=== PATIENT | male | born 1950 | race Two or more races ===

== ENCOUNTER 2025-05-20 23:46 | Inpatient (IN) | payer MEDICARE, MEDICAID ==
[~2025-05-20] VITALS: Ht 175.3 cm; Wt 78.1 kg
[2025-05-21] VITALS (17 sets, daily range): BP systolic 139–149; BP diastolic 60–65; PULSE 70–107; RESP 16–30; TEMP 97.3–97.7; O2SAT 94–100
--- NOTE | 2025-05-21 00:24 | ED.PDOC ---
SOB-HPI HPI Comments 74-year-old male who came to ER via EMS for shortness a breath. Patient has history of hypertension, diabetes, end-stage renal disease, on dialysis every Friday and Friday. Unable to attend his dialysis session yesterday (). 2 hours prior to arrival, patient started developing shortness of breath, associated with left-sided chest pains and diaphoresis. Patient was given albuterol treatment while EN route to the emergency room. Patient was saturating 98% at 15 L/min Chief Complaint: Shortness of Breath Time Seen by MD: 00:22 Reviewed notes: Nurses Notes Information Source: Patient, Emergency Med Personnel Mode of Arrival: EMS Severity: Moderate Timing: Hours Duration: Since onset Context: At Rest, With Light Exertion History of: Other (End-stage renal disease) Prehospital treatment: Breathing Tx Associated Signs and Symptoms: Wheeze, Cough, Chest Pain Review of Systems REVIEW OF SYSTEMS: No fever, no chills, or fatigue HEENT: No sore throat, no earache, no congestion, no neck pain. Cardiac: (+) chest pain. No palpitations. Lungs: (+) shortness of breath, no cough. GI: No nausea, no vomiting, no diarrhea, no constipation, no abdominal pain : No dysuria, frequency, or urgency. No hematuria. Musculoskeletal: No joint pain , no joint swelling, no extremity edema. Skin: No rash, no itching. Neuro: No headache, no dizziness, no weakness Vital Signs Vital Signs Date Time Temp Pulse Resp B/P (MAP) Pulse Ox O2 Delivery O2 Flow Rate FiO2 05/21/25 03:01 81 100 Facial BiPAP Mask 30 05/21/25 02:19 17 146/72 (96) 05/21/25 01:17 97.6 97.6 Physical Exam General: Awake, alert and oriented. Patient is diaphoretic Skin: Skin in moist, warm and intact. Appropriate color for ethnicity. Nailbeds pink with no cyanosis. HEENT: The head is normocephalic and atraumatic. Conjunctivae are clear without exudates or hemorrhage. Sclera is non-icteric. EOM are intact. No signs of nystagmus. Eyelids are normal in appearance without swelling or lesions. Oral mucosa is pink and moist Neck: The neck is supple with normal range of motion. No JVD. Cardiac: Heart rate and rhythm are normal. No murmurs, gallops, or rubs are auscultated. Respiratory: Positive respiratory distress, rales throughout, expiratory wheezes Abdominal: Abdomen is soft, non-tender without distention. Bowel sounds are present and normoactive in all four quadrants. Extremities: Bilateral lower extremity pitting edema Neurological: The patient is awake, alert and oriented to person, place, and time with normal speech. Speech is clear. There is no facial asymmetry. Past Medical History PAST MEDICAL HISTORY: DM, ESRD, HTN Surgical History (Other): Dialysis Friday Family History Family History: Reviewed,noncontributory to illness Social History Smoker: Non-Smoker Alcohol: Denies ETOH Use Drugs: Denies Drug Use Lives In: Home EKG EKG : Pulse Rate (adult): 109 Hypertrophy: LAE Comments Ectopic atrial tachycardia, prolonged MD interval Was a procedure done? Was a procedure done?: No Differential Dx Differential Diagnosis: Bronchitis, CHF, COPD, Hyperventilation, Myocardial infarction, Pneumonia, Respiratory Distress, Other X-Ray, Labs, Meds, VS Vital Signs Date Time Temp Pulse Resp B/P (MAP) Pulse Ox O2 Delivery O2 Flow Rate FiO2 05/21/25 03:01 81 100 Facial BiPAP Mask 30 05/21/25 02:19 83 17 146/72 (96) 100 05/21/25 02:04 156/75 05/21/25 01:43 85 100 Facial BiPAP Mask 40 05/21/25 01:43 86 05/21/25 01:17 97.6 86 19 152/74 (100) 100 97.6 05/21/25 01:15 19 100 Bi-Pap+ 40 40 05/21/25 01:00 147/77 05/21/25 00:54 107 30 99 50 05/21/25 00:34 107 99 Facial BiPAP Mask 50 05/21/25 00:24 109 05/21/25 00:00 107 05/20/25 23:56 109 05/20/25 23:46 98.3 107 26 185/94 (124) 92 98.3 Lab Test 05/21/25 03:18 05/21/25 01:41 05/21/25 01:21 05/21/25 01:20 Range/Units Troponin I High Sensitivity 120 *H 92 *H </=54 ng/L POC Glucose 186 H 70-106 mg/dl Influenza Type A Antigen Negative Negative Influenza Type B Antigen Negative Negative SARS-CoV-2 Antigen (Rapid) Negative NEGATIVE Test 05/21/25 01:16 05/21/25 00:15 Range/Units Blood Gas Specimen Type Arterial Blood Gas Sample Site Right radial Blood Gas Patient Temperature 37.0 Arterial Blood Date Drawn [id number] Arterial Blood pH 7.358 7.350-7.450 Arterial Blood Partial Pressure CO2 38.0 35.0-48.0 mmHg Arterial Blood Partial Pressure O2 116.1 H 83.0-108.0 mmHg Arterial Blood HCO3 20.9 L 21.0-28.0 mmol/L Arterial Blood Oxygen Saturation 97.2 94.0-98.0 % Arterial Blood Base Excess -4.1 L -2.0-3.0 mmol/L Arterial Blood Oxyhemoglobin 96.0 94.0-98.0 % Arterial Blood Carboxyhemoglobin 1.1 0.5-1.5 % Arterial Blood Methemoglobin 0.1 0.0-1.5 % Harshad Test Yes Blood Gas Total Hemoglobin 10.50 L 13.5-17.5 g/dL Blood Gas Set Respiration Rate 12.0 Blood Gas Modality Mask - bipap FiO2 % 50.0 Blood Gas EPAP 5 Blood Gas IPAP 12 White Blood Count 7.5 4.4-10.8 10^3/uL Red Blood Count 3.54 L 4.5-5.90 10^6/uL Hemoglobin 11.1 L 13.5-17.5 g/dL Hematocrit 34.1 L 41.0-53.0 % Mean Corpuscular Volume 96.5 80.0-100.0 fL Mean Corpuscular Hemoglobin 31.4 28.0-32.0 pg Mean Corpuscular Hemoglobin Concent 32.6 32.0-36.0 g/dL Red Cell Distribution Width 14.8 H 11.8-14.3 % Platelet Count 186 140-450 10^3/uL Mean Platelet Volume 7.9 6.9-10.8 fL Neutrophils (%) (Auto) 48.4 37.0-80.0 % Lymphocytes (%) (Auto) 37.2 10.0-50.0 % Monocytes (%) (Auto) 10.1 0.0-12.0 % Eosinophils (%) (Auto) 3.1 0.0-7.0 % Basophils (%) (Auto) 1.2 0.0-2.0 % Neutrophils # (Auto) 3.6 1.6-8.6 10 ^3/uL Lymphocytes # (Auto) 2.8 0.4-5.4 10 ^3/uL Monocytes # (Auto) 0.8 0-1.3 10 ^3/uL Eosinophils # (Auto) 0.2 0-0.8 10 ^3/uL Basophils # (Auto) 0.1 0-0.2 10 ^3/uL Nucleated Red Blood Cells 0.0 % Prothrombin Time 10.9 9.3-11.8 sec Prothrombin Time INR 1.03 0.9-1.15 Sodium Level 144 136-145 mmol/L Potassium Level 5.9 *H 3.5-5.1 mmol/L Chloride Level 103 98-107 mmol/L Carbon Dioxide Level 24 20-31 mmol/L Anion Gap 17 H 5-15 Blood Urea Nitrogen 92 *H 9-23 mg/dL Creatinine 11.53 *H 0.700-1.30 mg/dL Glomerular Filtration Rate Calc 4 >90 mL/min BUN/Creatinine Ratio 8.0 L 10.0-20.0 Serum Glucose 201 H 74-106 mg/dL Hemoglobin A1c 6.0 H <5.7 % A1C Lactic Acid Level 1.3 0.4-2.0 mmol/L Calcium Level 7.7 L 8.7-10.4 mg/dL Phosphorus Level 5.0 2.4-5.1 mg/dL Magnesium Level 2.7 H 1.6-2.6 mg/dL Total Bilirubin 0.2 0.2-1.0 mg/dL Aspartate Amino Transferase (AST) 32 <34 U/L Alanine Aminotransferase (ALT) 24 7-40 U/L Alkaline Phosphatase 103 46-116 U/L Troponin I High Sensitivity 86 *H </=54 ng/L B-Type Natriuretic Peptide 1469.48 0-100 pg/mL Total Protein 8.2 5.7-8.2 g/dL Albumin 4.8 3.2-4.8 g/dL Lipase 96 H 12-53 U/L Thyroid Stimulating Hormone (TSH) 4.06 0.55-4.78 uIU/mL Plasma/Serum Blood Alcohol 4.8 <10 mg/dL Current Medications Medications (Trade) Dose Ordered Sig/Rakan Route Start Time Stop Time Status Last Admin Nitroglycerin (Nitro-Bid) 1 pkg ONCE ONCE TD 05/21/25 00:00 05/21/25 00:01 DC 05/21/25 01:00 Insulin Human Regular (InsuLIN R) 10 units ONCE ONCE IV 05/21/25 01:45 05/21/25 01:46 DC 05/21/25 01:45 Dextrose 50 ml ONCE ONCE IV 05/21/25 01:45 05/21/25 01:46 DC 05/21/25 01:45 Albuterol (Ventolin Medneb) 20 mg ONCE ONCE NEB 05/21/25 01:45 05/21/25 01:46 DC 05/21/25 03:01 Sodium Bicarbonate 50 ml ONCE ONCE IV 05/21/25 01:45 05/21/25 01:46 DC 05/21/25 01:45 CHEST RADIOGRAPH Indication: AMS Technique: Single frontal view of the chest was obtained COMPARISON: None FINDINGS: Lines and Tubes: None Lungs: Diffuse extensive bilateral pulmonary infiltrate with mild consolidative features throughout the right lung and left lung base. No definite pleural effusion. No pneumothorax. Cardiomediastinal contours: Unremarkable. Atherosclerotic vascular calcifications. Bones: Unremarkable IMPRESSION: 1. Diffuse extensive bilateral pulmonary infiltrate with mild right hemithoracic and left lung base consolidative features. Time of 1ST Reevaluation: 00:07 Reevaluation 1ST: Unchanged Patient Education/Counseling: Prognosis Family Education/Counseling: No Family Present SEPSIS Sepsis Screen Physician Orders Drug Screen (05/21/25 00:00) Urinalysis (05/21/25 00:00) Chest Xray 1 View (05/21/25 00:00) Blood Culture (05/21/25 00:00) Saline Lock (05/21/25 00:00) Fisher Trap (05/21/25 ) Electrocardigram (05/21/25 03:00) BIPAP (05/21/25 00:20) Abg W/ Co-Ox (05/21/25 01:00) Vital Signs Date Time Temp Pulse Resp B/P (MAP) Pulse Ox O2 Delivery O2 Flow Rate FiO2 05/21/25 03:01 81 100 Facial BiPAP Mask 30 05/21/25 02:19 83 17 146/72 (96) 100 05/21/25 02:04 156/75 05/21/25 01:43 85 100 Facial BiPAP Mask 40 05/21/25 01:43 86 05/21/25 01:17 97.6 86 19 152/74 (100) 100 97.6 05/21/25 01:15 19 100 Bi-Pap+ 40 40 05/21/25 01:00 147/77 05/21/25 00:54 107 30 99 50 05/21/25 00:34 107 99 Facial BiPAP Mask 50 05/21/25 00:24 109 05/21/25 00:00 107 05/20/25 23:56 109 05/20/25 23:46 98.3 107 26 185/94 (124) 92 98.3 Laboratory Tests Test 05/21/25 00:15 Lactic Acid Level 1.3 mmol/L (0.4-2.0) White Blood Count 7.5 10^3/uL (4.4-10.8) Departure 1 Departure Time of Disposition: 02:16 Impression: Primary Impression: Acute pulmonary edema Additional Impressions: Hypoxic respiratory failure Missed dialysis End stage renal disease on dialysis Disposition: ADMITTED INPATIENT Condition: Guarded Comments 74-year-old male with history of end-stage renal disease, missed dialysis arrived to the emergency department with shortness of breath with primary 15 L. Patient was placed on BiPAP on arrival to the ED. Chest x-ray showed pulmonary edema. Attempt to consult Nephrology for urgent dialysis. Patient was was given nitro paste, treated for hyperkalemia. Patient is stabilized in the ED. Patient admitted to hospitalist service for further treatment, evaluation and monitoring. Extensive evaluation was performed in attempt to identify or rule out: (See differential diagnosis section) The following tests were ordered, and results were reviewed by me and discussed with patient: (See diagnostic results section) The following test were independently interpreted by me: EKG I reviewed and agreed with the following test results read by other providers: Chest x-ray I reviewed the following notes from the pt's past medical encounters: N/A Additional information was gathered from interviewing the following independent historians: N/A Discussion of management or test interpretation with external physician/other qualified health career transition specialist: N/A Addressed one or more chronic illnesses with severe exacerbation, progression, or side effects of treatment: His renal disease on dialysis, an acute or chronic illness that poses a threat to life or bodily function: Hypoxic respiratory failure, hyperkalemia Decision regarding hospitalization or escalation of hospital level of care: Risk and benefits of admission for further treatment of patient's condition was considered. Due to patient's current clinical condition, high risk of decline and poor outcome if discharged and need for further inpatient management and monitoring, patient will be admitted to the hospital. Discussed with patient. Drug therapy requiring intensive monitoring for toxicity: IV sodium bicarb, IV dextrose, IV insulin Parenteral controlled substances: N/A Decision regarding elective major surgery with identified patient or procedure risk factors: N/A Decision regarding emergency major surgery: N/A Decision not to resuscitate or to de-escalate care because of poor prognosis: N/A Diagnosis or treatment significantly limited by social determinants of health: N/A Critical Care Note Critical Care Time?: Yes (35 min-critical care time only) Critical care comment: . Due to a high probability of clinically significant, life threatening deterioration, the patient required my highest level of preparedness to intervene emergently and I personally spent this critical care time directly and personally managing the patient. This critical care time included obtaining a history; examining the patient; pulse oximetry; ordering and review of studies; arranging urgent treatment with development of a management plan; evaluation of patient's response to treatment; frequent reassessment; and, discussions with other providers. This critical care time was performed to assess and manage the high probability of imminent, life-threatening deterioration that could result in multi-organ failure. It was exclusive of separately billable procedures and treating other patients and teaching time. Please see my other sections and the rest of the note for further information on patient assessment and treatment. Stability Stability form required: No Heart Score Heart Score: Heart Score Response (Comments) Value History Moderate Suspicious 1 EKG Repolarization Disturb 1 Age >65 2 Risk Factors >3 or Hx ASHD 2 Troponin Normal limit 0 Total 6 I personally scribed for ENRIQUE STEEN MD ([email or web address]) on 05/21/25 at 00:24. Electronically submitted by Baldomero Moeller ([email or web address]). I personally scribed for ENRIQUE STEEN MD ([email or web address]) on 05/21/25 at 01:01. Electronically submitted by Baldomero Moeller ([facility] ENRIQUE STEEN MD May 21, 2025 00:24
[2025-05-21 00:34] LABS: Basophils # (auto) 0.1 10 ^3/uL (0-0.2); Basophils % (auto) 1.2 % (0.0-2.0); Eosinophils # (auto) 0.2 10 ^3/uL (0-0.8); Eosinophils % (auto) 3.1 % (0.0-7.0); Hematocrit 34.1 % (41.0-53.0); Hemoglobin 11.1 g/dL (13.5-17.5); Lymphocytes # (auto) 2.8 10 ^3/uL (0.4-5.4); Lymphocytes % (auto) 37.2 % (10.0-50.0); Mean Corpuscular Hemoglobin 31.4 pg (28.0-32.0); Mean Corpuscular Hgb Conc. 32.6 g/dL (32.0-36.0); Mean Corpuscular Volume 96.5 fL (80.0-100.0); Monocytes # (auto) 0.8 10 ^3/uL (0-1.3); Monocytes % (auto) 10.1 % (0.0-12.0); Neutrophils # (auto) 3.6 10 ^3/uL (1.6-8.6); Neutrophils % (auto) 48.4 % (37.0-80.0); Platelet Count (auto) 186 10^3/uL (140-450); Red Blood Cells 3.54 10^6/uL (4.5-5.90); Red Cell Distribution Width 14.8 % (11.8-14.3); White Blood Cell 7.5 10^3/uL (4.4-10.8)
[2025-05-21] MEDS ORDERED: NITROGLYCERIN 50MG/250ML 250 ML IV ONE (00:45)
[2025-05-21 00:47] LABS: INR 1.03 (0.9-1.15); Prothrombin Time 10.9 sec (9.3-11.8)
[2025-05-21 00:51] LABS: Alanine Aminotransferase 24 U/L (7-40); Albumin 4.8 g/dL (3.2-4.8); Alkaline Phosphatase 103 U/L (46-116); Anion Gap 17 (5-15); Aspartate Aminotransferase 32 U/L (<34); Carbon Dioxide 24 mmol/L (20-31); Chloride 103 mmol/L (98-107); Sodium 144 mmol/L (136-145); Total Protein 8.2 g/dL (5.7-8.2)
[2025-05-21 00:54] LABS: Bilirubin, Total 0.2 mg/dL (0.2-1.0); Calcium 7.7 mg/dL (8.7-10.4); Glucose 201 mg/dL (74-106); Lipase 96 U/L (12-53); Magnesium 2.7 mg/dL (1.6-2.6)
[2025-05-21 00:55] LABS: Blood Urea Nitrogen 92 mg/dL (9-23); Potassium 5.9 mmol/L (3.5-5.1)
--- NOTE | 2025-05-21 00:56 | DVH ---
CHEST RADIOGRAPH Indication: AMS Technique: Single frontal view of the chest was obtained COMPARISON: None FINDINGS: Lines and Tubes: None Lungs: Diffuse extensive bilateral pulmonary infiltrate with mild consolidative features throughout t he right lung and left lung base. No definite pleural effusion. No pneumothorax. Cardiomediastinal contours: Unremarkable. Atherosclerotic vascular calcifications. Bones: Unremarkable IMPRESSION: 1. Diffuse extensive bilateral pulmonary infiltrate with mild right hemithoracic and left lung base c onsolidative features.
[2025-05-21] MEDS: NITROGLYCERIN 2% OINT 1GM PKG TD ONE (01:00)
[2025-05-21 01:13] LABS: Blood Alcohol 4.8 mg/dL (<10)
[2025-05-21 01:24] LABS: Base Excess -4.1 mmol/L (-2.0-3.0)
[2025-05-21] MEDS: DEXTROSE (50%) 50ML SYRG IV ONE ×2 (01:45→09:15)
[2025-05-21] MEDS: InsuLIN REG 1unit/0.01ml Soln (100units/ml) IV ONE ×2 (01:45→09:15)
[2025-05-21] MEDS: SODIUM BICARB 8.4% 50Meq/50ml SYR INJ IV ONE ×2 (01:45→09:15)
[2025-05-21 01:54] LABS: Rapid Influenza A Negative (Negative); Rapid Influenza B Negative (Negative)
[2025-05-21 01:55] LABS: COVID19 ANTIGEN SOFIA FIA NEGATIVE (NEGATIVE)
[2025-05-21] MEDS: ALBUTEROL SULF 2.5 MG/0.5ML(0.5%) NEB SOLN NEB ONE ×2 (03:01→07:39)
[2025-05-21] MEDS ORDERED: NITROGLYCERIN 0.4 MG SL TAB SL PRN (03:45)
[2025-05-21] MEDS ORDERED: DEXTROSE (50%) 50ML SYRG IV PRN (06:00)
--- NOTE | 2025-05-21 06:05 | DVHHPRES ---
History of Present Illness Resident Creating Document: AL BRUCE RESIDENT History of Present Illness Patient is a 73-year-old male with a past medical history of end-stage renal disease on dialysis Friday at [facility] dialysis, hypertension, type 2 diabetes mellitus, coronary artery disease, congestive heart failure, glaucoma presented to the ED with a chief complaint of shortness of breath. Patient reported that he started to have shortness of breath today which worsened following which she had to come to the hospital for further evaluation. Also reported left-sided chest pain which was pressure-like associated with bilateral hand numbness. Patient denied any palpitations, dizziness, headache. Patient reported he attended his last dialysis session on that he does not any urine output. Past medical history as per HPI Past surgical history: Left forearm AV fistula Social history: Patient lives with family and denies smoking, alcohol, drug use Home medications: Carvedilol 12.5 b.i.d., gabapentin 100 t.i.d., losartan 50 daily, atorvastatin 40 daily, aspirin Review of Systems Review of Systems Patient seen and examined at the bedside Was on BiPAP with a IPAP 12 and EPAP 5 and pulling more than 500 mL of tidal volume, no respiratory distress noted Was able to answer in full sentences Complained of mild chest pain 3/10 on intensity, nonradiating, pressure-like No other acute complaints Allergies: Coded Allergies: NO KNOWN ALLERGIES (Unverified , 05/21/25) Medications Current Medications Medications Dose Ordered Sig/Rakan Route Start Time Stop Time Status Last Admin Dose Admin Nitroglycerin 0.4 mg Q5MINP PRN SL 05/21/25 03:45 Morphine Sulfate 2 mg Q30M PRN IV 05/21/25 03:45 Albuterol 2.5 mg Q8HR NEB 05/21/25 06:00 Ipratropium Colt 0.5 mg Q8HR NEB 05/21/25 06:00 Carvedilol 12.5 mg Q12HR PO 05/21/25 10:00 Nifedipine 30 mg DAILY PO 05/21/25 10:00 Exam Vital Signs Vital Signs Date Time Temp Pulse Resp B/P (MAP) Pulse Ox O2 Delivery O2 Flow Rate FiO2 05/21/25 04:19 83 05/21/25 04:00 21 131/66 (87) 93 05/21/25 03:01 Facial BiPAP Mask 30 05/21/25 01:17 97.6 97.6 Exam Gen - no pallor, no icterus, no cyanosis, no clubbing, no LAD, 1+ edema in the bilateral ankles. Skin - Patients skin is warm and dry. HEENT - normocephalic, atraumatic, dry mucous membranes. Neck - full ROM, no LAD, JVD elevated Pulmonary - B/L equal breath sounds with inspiratory crackles more on the right as compared to the left, no wheezing, no stridor. cardiovascular - regular S1,S2 heard, no added sounds, no murmurs heard. GI - soft, nontender abdomen. no hepatospleenomegaly. Bowel sounds normoactive Neurological - Patient is A/O X 3 . Bilateral upper extremity strength 5/5, bilateral lower extremity strength 5/5, no facial droop, normal speech, no tremor, no sensory deficiets. Labs/Xrays Labs Test 05/21/25 03:18 05/21/25 01:41 05/21/25 01:21 05/21/25 01:16 Range/Units Troponin I High Sensitivity 120 *H </=54 ng/L POC Glucose 186 H 70-106 mg/dl Influenza Type A Antigen Negative Negative Influenza Type B Antigen Negative Negative SARS-CoV-2 Antigen (Rapid) Negative NEGATIVE Blood Gas Specimen Type Arterial Blood Gas Sample Site Right radial Blood Gas Patient Temperature 37.0 Arterial Blood Date Drawn [id number] Arterial Blood pH 7.358 7.350-7.450 Arterial Blood Partial Pressure CO2 38.0 35.0-48.0 mmHg Arterial Blood Partial Pressure O2 116.1 H 83.0-108.0 mmHg Arterial Blood HCO3 20.9 L 21.0-28.0 mmol/L Arterial Blood Oxygen Saturation 97.2 94.0-98.0 % Arterial Blood Base Excess -4.1 L -2.0-3.0 mmol/L Arterial Blood Oxyhemoglobin 96.0 94.0-98.0 % Arterial Blood Carboxyhemoglobin 1.1 0.5-1.5 % Arterial Blood Methemoglobin 0.1 0.0-1.5 % Harshad Test Yes Blood Gas Total Hemoglobin 10.50 L 13.5-17.5 g/dL Blood Gas Set Respiration Rate 12.0 Blood Gas Modality Mask - bipap FiO2 % 50.0 Blood Gas EPAP 5 Blood Gas IPAP 12 Test 05/21/25 00:15 Range/Units White Blood Count 7.5 4.4-10.8 10^3/uL Red Blood Count 3.54 L 4.5-5.90 10^6/uL Hemoglobin 11.1 L 13.5-17.5 g/dL Hematocrit 34.1 L 41.0-53.0 % Mean Corpuscular Volume 96.5 80.0-100.0 fL Mean Corpuscular Hemoglobin 31.4 28.0-32.0 pg Mean Corpuscular Hemoglobin Concent 32.6 32.0-36.0 g/dL Red Cell Distribution Width 14.8 H 11.8-14.3 % Platelet Count 186 140-450 10^3/uL Mean Platelet Volume 7.9 6.9-10.8 fL Neutrophils (%) (Auto) 48.4 37.0-80.0 % Lymphocytes (%) (Auto) 37.2 10.0-50.0 % Monocytes (%) (Auto) 10.1 0.0-12.0 % Eosinophils (%) (Auto) 3.1 0.0-7.0 % Basophils (%) (Auto) 1.2 0.0-2.0 % Neutrophils # (Auto) 3.6 1.6-8.6 10 ^3/uL Lymphocytes # (Auto) 2.8 0.4-5.4 10 ^3/uL Monocytes # (Auto) 0.8 0-1.3 10 ^3/uL Eosinophils # (Auto) 0.2 0-0.8 10 ^3/uL Basophils # (Auto) 0.1 0-0.2 10 ^3/uL Nucleated Red Blood Cells 0.0 % Prothrombin Time 10.9 9.3-11.8 sec Prothrombin Time INR 1.03 0.9-1.15 Sodium Level 144 136-145 mmol/L Potassium Level 5.9 *H 3.5-5.1 mmol/L Chloride Level 103 98-107 mmol/L Carbon Dioxide Level 24 20-31 mmol/L Anion Gap 17 H 5-15 Blood Urea Nitrogen 92 *H 9-23 mg/dL Creatinine 11.53 *H 0.700-1.30 mg/dL Glomerular Filtration Rate Calc 4 >90 mL/min BUN/Creatinine Ratio 8.0 L 10.0-20.0 Serum Glucose 201 H 74-106 mg/dL Lactic Acid Level 1.3 0.4-2.0 mmol/L Calcium Level 7.7 L 8.7-10.4 mg/dL Magnesium Level 2.7 H 1.6-2.6 mg/dL Total Bilirubin 0.2 0.2-1.0 mg/dL Aspartate Amino Transferase (AST) 32 <34 U/L Alanine Aminotransferase (ALT) 24 7-40 U/L Alkaline Phosphatase 103 46-116 U/L B-Type Natriuretic Peptide 1469.48 0-100 pg/mL Total Protein 8.2 5.7-8.2 g/dL Albumin 4.8 3.2-4.8 g/dL Lipase 96 H 12-53 U/L Thyroid Stimulating Hormone (TSH) 4.06 0.55-4.78 uIU/mL Plasma/Serum Blood Alcohol 4.8 <10 mg/dL Assessment/Plan Assessment/Plan Assessment Acute on chronic hypoxic respiratory failure Pulmonary edema likely due to end-stage renal disease CHF exacerbation End-stage renal disease Hyperkalemia Acute chest pain, rule out ACS NSTEMI type 1 versus type 2 Hypertensive heart disease with heart failure Type 2 diabetes mellitus with a hyperglycemia Plan - hyperkalemia treatment protocol given - patient was put on BiPAP with improvement, patient back to nasal cannula with no respiratory distress - nephrology consulted, patient is scheduled for dialysis on Friday, left forearm fistula - ECG shows sinus rhythm with T-wave inversion seen in 1 aVL and V1 V2, troponins trending up - cardiology consulted for possible NSTEMI type 1 - carvedilol 12.5 b.i.d. and nifedipine 30 mg daily - mild insulin sliding scale PUD prophylaxis: Protonix DVT prophylaxis: Heparin Goals of care discussed with the patient for over 23 minutes. Full code Time spent: 41 minutes Plan discussed with Dr. Wiggins Plan discussed with: Patient My Orders Orders - AL BRUCE RESIDENT Procedure Category Date Status Time Admit ADMIT 05/21/25 Transmitted 03:36 Nitroglycerin PHA 05/21/25 In Process Sublingual (Ntrostat 03:45 Morphine Sulfate PHA 05/21/25 In Process Injection 03:45 Oxygen By Nasal RT 05/21/25 Transmitted Cannula 03:36 Stat Ekg For Chest DEBRA 05/21/25 In Process Pain 03:36 Notify Md Of Changes [facility] 05/21/25 In Process From Base 03:36 Therapist'S Assistant For [facility] 05/21/25 In Process 24 Hours 03:36 Emergency Dysrhythmia [facility] 05/21/25 In Process Protocol 03:36 Rhythm Strips Once [facility] 05/21/25 In Process Every Shift 03:36 Complete Blood Count LAB 05/21/25 Logged 04:00 Basic Metabolic Panel LAB 05/21/25 Logged 04:00 *[facility]. [facility] CONS 05/21/25 Transmitted Fozia 03:36 Chest Xray 1 View XY 05/21/25 Logged 07:00 Albuterol Medneb PHA 05/21/25 In Process (Ventolin Medneb) 06:00 Ipratropium Medneb PHA 05/21/25 In Process (Atrovent Medneb) 06:00 Carvedilol Tablet PHA 05/21/25 In Process (Coreg Tablet) 10:00 Nifedipine Er PHA 05/21/25 In Process (Procardia Xl 10:00 Date of Service: May 21, 2025 Billing Provider: SILVANA WIGGINS MD Common Visit Codes: [id number] INP/OBS CARE (HIGH) Secondary Visit Codes: [id number] CARE PLAN 30 MINUTES AL BRUCE RESIDENT May 21, 2025 06:05
--- NOTE | 2025-05-21 06:06 | ECG ---
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
--- NOTE | 2025-05-21 06:08 | ECG ---
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
[2025-05-21] MEDS: ALBUTEROL SULF 2.5 MG/0.5ML(0.5%) NEB SOLN NEB SCH (06:42)
[2025-05-21] MEDS: IPRATROPIUM BROM 0.5 MG/2.5ML INH SOL NEB SCH (06:42)
[2025-05-21 06:49] LABS: Anion Gap 17 (5-15); Basophils # (auto) 0.1 10 ^3/uL (0-0.2); Basophils % (auto) 1.5 % (0.0-2.0); Carbon Dioxide 25 mmol/L (20-31); Chloride 103 mmol/L (98-107); Eosinophils # (auto) 0.1 10 ^3/uL (0-0.8); Eosinophils % (auto) 2.2 % (0.0-7.0); Hematocrit 28.4 % (41.0-53.0); Hemoglobin 9.6 g/dL (13.5-17.5); Lymphocytes # (auto) 1.3 10 ^3/uL (0.4-5.4); Lymphocytes % (auto) 27.7 % (10.0-50.0); Mean Corpuscular Hgb Conc. 33.6 g/dL (32.0-36.0); Mean Corpuscular Volume 95.2 fL (80.0-100.0); Monocytes # (auto) 0.6 10 ^3/uL (0-1.3); Neutrophils # (auto) 2.5 10 ^3/uL (1.6-8.6); Neutrophils % (auto) 55.6 % (37.0-80.0); Platelet Count (auto) 150 10^3/uL (140-450); Red Blood Cells 2.99 10^6/uL (4.5-5.90); Red Cell Distribution Width 14.7 % (11.8-14.3); White Blood Cell 4.6 10^3/uL (4.4-10.8)
[2025-05-21 06:55] LABS: BUN/Creatinine Ratio 8.2 (10.0-20.0)
[2025-05-21] MEDS: PANTOPRAZOLE 40 MG TAB PO ONE (06:58)
[2025-05-21 07:01] LABS: Calcium 7.8 mg/dL (8.7-10.4); Glucose 149 mg/dL (74-106); Sodium 145 mmol/L (136-145)
[2025-05-21] MEDS: ACCU-CHEK COMFORT CURVE STRIP VI SCH (07:04)
[2025-05-21] MEDS: InsuLIN REG 1unit/0.01ml Soln (100units/ml) SC SCH (07:04)
[2025-05-21 07:08] LABS: Blood Urea Nitrogen 98 mg/dL (9-23)
--- NOTE | 2025-05-21 07:43 | DVH ---
EXAM: XR Chest, 1 View CLINICAL INDICATION: SOB on Bipap TECHNIQUE: Frontal view of the chest. COMPARISON: XY CHEST XRAY 1 VIEW on DOS: 05/21/25 FINDINGS: LUNGS AND PLEURAL SPACES: See below. HEART: Cardiomegaly with mild congestion. MEDIASTINUM: Unremarkable. Normal mediastinal contour. BONES/JOINTS: Unremarkable. No acute fracture. OTHER FINDINGS: . IMPRESSION: Cardiomegaly with mild congestion.
[2025-05-21] MEDS: CALCIUM GLUC 1,000mg/50ml-NS 50 ML IV ONE (08:48)
[2025-05-21] MEDS: SODIUM ZIRCONIUM CYCL 10 GM PAK PO ONE (08:48)
[2025-05-21] MEDS: NIFEdipine ER 30 MG TAB PO SCH (10:20)
[2025-05-21] MEDS: CARVEDILOL 12.5 MG TAB PO SCH (10:20)
[2025-05-21] MEDS: HEPARIN SODIUM (PORCINE) 5000 UNITS/ML 1ML VIAL SC SCH (10:21)
--- NOTE | 2025-05-21 13:07 | DVHINCON2 ---
Date Seen: May 21, [address] Stewart Reason for Consultation NSTEMI History of Present Illness A 74-year-old male with past medical history of end-stage renal disease on hemodialysis, hypertension, type 2 diabetes mellitus, coronary artery disease, and congestive heart failure presented to the emergency department with a chief complaint of shortness of breath that has progressively worsened over the past f ew days. The patient also reports the recent onset of sharp, pleuritic chest pain that is worsened with deep inspiration, along with associated bilateral hand numbness. He denies any recent fever, cough, or leg swelling. He follows with cardiology at [place] and is scheduled for a left heart catheterization next Friday as part of pre operative evaluation for a potential kidney transplant. In the ED, his 12 lead ECG showed normal sinus rhythm. A prior echocardiogram from October 2024 demonstrated a preserved left ventricular ejection fraction of 55-60%. Serial troponins were noted to be elevated and trending upward 86, 120s, 237, and 214, and his BNP was significantly elevated at one 1469 pg/mL. A chest x-ray revealed cardiomegaly with mild pulmonary congestion. Past Medical History As stated in HPI Past Surgical History Denies Family History Reviewed, non-contributory to the management of this case. Social History The patient lives at home, denies smoking, alcohol or illicit drugs abuse. Allergies: Coded Allergies: NO KNOWN ALLERGIES (Unverified , 05/21/25) Current Medications Current Medications Medications (Trade) Dose Ordered Sig/Rakan Route PRN Reason Start Time Stop Time Status Last Admin Nitroglycerin (Ntrostat Sublingual) 0.4 mg Q5MINP PRN SL FOR CHEST PAIN 05/21/25 03:45 Morphine Sulfate 2 mg Q30M PRN IV FOR CHEST PAIN 05/21/25 03:45 Albuterol (Ventolin Medneb) 2.5 mg Q8HR NEB 05/21/25 06:00 05/21/25 06:42 Ipratropium [place] (Atrovent Medneb) 0.5 mg Q8HR NEB 05/21/25 06:00 05/21/25 06:42 Carvedilol (Coreg Tablet) 12.5 mg Q12HR PO 05/21/25 10:00 05/21/25 10:20 Nifedipine (Procardia Xl (Time-Release)) 30 mg DAILY PO 05/21/25 10:00 05/21/25 10:20 Diagnostic Test (Pha) (Accu-Chek Comfort Curve T) 1 strip ACHS 05/21/25 07:00 05/21/25 11:30 Insulin Human Regular (InsuLIN R) ACHS SC 05/21/25 07:00 05/21/25 07:04 Dextrose 50 ml UD PRN IV Blood Sugar LESS THAN 60 05/21/25 06:00 Pantoprazole Sodium (Protonix Tablet) 40 mg DAILY@0600 PO 05/22/25 06:00 Heparin Sodium (Porcine) 5,000 units Q12HR SC 05/21/25 10:00 05/21/25 10:21 Review of Systems Constitutional: Denies fever, chills, weight loss Ears, Nose, & Throat: No symptom reported Eyes: No symptom reported Neurological: No symptoms reported Pulmonary/Respiratory: Positive for dyspnea. Denies cough or hemoptysis Cardiovascular: Positive for chest pain and shortness of breath. No palpitation or syncope Gastrointestinal: No symptom reported Genitourinary: No symptom reported Musculoskeletal: No symptom reported Skin: No symptom reported Psychiatric: No symptom reported Endocrine: No symptom reported Hemotologic/Lymphatic: No symptom reported Vital Signs Vital Signs Date Time Temp Pulse Resp B/P (MAP) Pulse Ox O2 Delivery O2 Flow Rate FiO2 05/21/25 12:00 97.4 73 16 134/63 (86) 92 97.4 05/21/25 07:57 Nasal Cannula* 2 28 Physical Exam INITIAL VITAL SIGNS: Reviewed by me GENERAL: Alert and interactive. No acute distress. HEAD: Head is normocephalic and atraumatic. EYES: EOMI, PERRL. No scleral icterus. No conjunctival injection. ENT: Moist mucous membranes. NECK: Supple, No masses, Full range of motion. RESPIRATORY: Mild bibasilar crackles. No wheezing or rhonchi CV: Normal sinus rhythm, no murmurs, gallops, or rubs. No JVD, bilateral lower extremity plus one pitting edema GI/: Active bowel sounds, soft, nondistended, nontender. No guarding. No rebound. No masses. No CVA tenderness. INTEGUMENTARY: Warm and dry. No obvious rashes. NEUROLOGIC: Alert and oriented. Face is symmetric. Speech is normal. Moves all extremities equally. Labs/Diagnostic Data Labs Test 05/21/25 12:34 05/21/25 10:20 05/21/25 05:48 05/21/25 01:21 Range/Units POC Glucose 91 70-106 mg/dl Troponin I High Sensitivity 214 *H </=54 ng/L White Blood Count 4.6 # 4.4-10.8 10^3/uL Red Blood Count 2.99 L 4.5-5.90 10^6/uL Hemoglobin 9.6 L 13.5-17.5 g/dL Hematocrit 28.4 #L 41.0-53.0 % Mean Corpuscular Volume 95.2 80.0-100.0 fL Mean Corpuscular Hemoglobin 32.0 28.0-32.0 pg Mean Corpuscular Hemoglobin Concent 33.6 32.0-36.0 g/dL Red Cell Distribution Width 14.7 H 11.8-14.3 % Platelet Count 150 140-450 10^3/uL Mean Platelet Volume 8.2 6.9-10.8 fL Neutrophils (%) (Auto) 55.6 37.0-80.0 % Lymphocytes (%) (Auto) 27.7 10.0-50.0 % Monocytes (%) (Auto) 13.0 H 0.0-12.0 % Eosinophils (%) (Auto) 2.2 0.0-7.0 % Basophils (%) (Auto) 1.5 0.0-2.0 % Neutrophils # (Auto) 2.5 1.6-8.6 10 ^3/uL Lymphocytes # (Auto) 1.3 0.4-5.4 10 ^3/uL Monocytes # (Auto) 0.6 0-1.3 10 ^3/uL Eosinophils # (Auto) 0.1 0-0.8 10 ^3/uL Basophils # (Auto) 0.1 0-0.2 10 ^3/uL Nucleated Red Blood Cells 0.0 % Sodium Level 145 136-145 mmol/L Potassium Level 6.0 *H 3.5-5.1 mmol/L Chloride Level 103 98-107 mmol/L Carbon Dioxide Level 25 20-31 mmol/L Anion Gap 17 H 5-15 Blood Urea Nitrogen 98 *H 9-23 mg/dL Creatinine 11.92 *H 0.700-1.30 mg/dL Glomerular Filtration Rate Calc 4 >90 mL/min BUN/Creatinine Ratio 8.2 L 10.0-20.0 Serum Glucose 149 H 74-106 mg/dL Calcium Level 7.8 L 8.7-10.4 mg/dL Influenza Type A Antigen Negative Negative Influenza Type B Antigen Negative Negative SARS-CoV-2 Antigen (Rapid) Negative NEGATIVE Test 05/21/25 01:16 05/21/25 00:15 Range/Units Blood Gas Specimen Type Arterial Blood Gas Sample Site Right radial Blood Gas Patient Temperature 37.0 Arterial Blood Date Drawn [id number] Arterial Blood pH 7.358 7.350-7.450 Arterial Blood Partial Pressure CO2 38.0 35.0-48.0 mmHg Arterial Blood Partial Pressure O2 116.1 H 83.0-108.0 mmHg Arterial Blood HCO3 20.9 L 21.0-28.0 mmol/L Arterial Blood Oxygen Saturation 97.2 94.0-98.0 % Arterial Blood Base Excess -4.1 L -2.0-3.0 mmol/L Arterial Blood Oxyhemoglobin 96.0 94.0-98.0 % Arterial Blood Carboxyhemoglobin 1.1 0.5-1.5 % Arterial Blood Methemoglobin 0.1 0.0-1.5 % Harshad Test Yes Blood Gas Total Hemoglobin 10.50 L 13.5-17.5 g/dL Blood Gas Set Respiration Rate 12.0 Blood Gas Modality Mask - bipap FiO2 % 50.0 Blood Gas EPAP 5 Blood Gas IPAP 12 Prothrombin Time 10.9 9.3-11.8 sec Prothrombin Time INR 1.03 0.9-1.15 Hemoglobin A1c 6.0 H <5.7 % A1C Lactic Acid Level 1.3 0.4-2.0 mmol/L Phosphorus Level 5.0 2.4-5.1 mg/dL Magnesium Level 2.7 H 1.6-2.6 mg/dL Total Bilirubin 0.2 0.2-1.0 mg/dL Aspartate Amino Transferase (AST) 32 <34 U/L Alanine Aminotransferase (ALT) 24 7-40 U/L Alkaline Phosphatase 103 46-116 U/L B-Type Natriuretic Peptide 1469.48 0-100 pg/mL Total Protein 8.2 5.7-8.2 g/dL Albumin 4.8 3.2-4.8 g/dL Lipase 96 H 12-53 U/L Thyroid Stimulating Hormone (TSH) 4.06 0.55-4.78 uIU/mL Plasma/Serum Blood Alcohol 4.8 <10 mg/dL PROCEDURE(s): CXR1 - CHEST XRAY 1 VIEW REASON: SOB on Bipap ORDER NUMBER(s): [id number], ACCESSION NUMBER(s): [id number] EXAM: XR Chest, 1 View CLINICAL INDICATION: SOB on Bipap TECHNIQUE: Frontal view of the chest. COMPARISON: XY CHEST XRAY 1 VIEW on DOS: 05/21/25 FINDINGS: LUNGS AND PLEURAL SPACES: See below. HEART: Cardiomegaly with mild congestion. MEDIASTINUM: Unremarkable. Normal mediastinal contour. BONES/JOINTS: Unremarkable. No acute fracture. OTHER FINDINGS: . IMPRESSION: Cardiomegaly with mild congestion. Assessment Rule out acute coronary syndrome Rule out progressive CAD Acute on chronic heart failure NSTEMI End-stage renal disease on hemodialysis Hypertension Diabetes type 2 Obesity Plan/Recommendation (Dr. Griffiths ): * Echocardiogram to assess for new wall motion abnormalities or pericardial effusion, and to evaluate signs of uremic pericarditis or CHF progression * Chest pain protocol, continue with O2 supplement * Daily weight, strict intake and output * Hemodialysis treatment per Nephrology The patient's symptoms and laboratory findings are concerning for acute coronary syndrome, likely non-STEMI myocardial infarction with possible concurrent heart failure exacerbation. The patient may benefit from a left heart catheterization for further diagnostic evaluation and management. Tentative plan for [facility] with Dr Rivera Griffiths on friday05/23/25. Discussed plan with patient and in agreement with [facility]. This medical document was created using an electronic medical record system with voice recognition software and computerized dictation system. Although this document has been carefully reviewed, there might still be some phonetic and typographical errors. Occasional wrong-word or ``sound-alike substitutions may have occurred due to the inherent limitations of voice recognition software. These areas are purely typographical due to imperfections of the software programs and do not reflect any compromise in the patient's medical care. Please read the chart carefully and recognize, using context, where these substitutions have occurred. Plan discussed with: Patient Plan discussed with: Patient NYHA Physical activity limitations: NA Date of Service: May 21, 2025 Billing Provider: CRISTINA GRIFFITHS MD Cardiology Common Codes: CONSULT ONLY Cardiology Consultation Codes: [id number] CONSULT <60MIN [facility] SPECIALIST May 21, 2025 13:07
--- NOTE | 2025-05-21 15:36 | DVHINCON2 ---
Date of service: May 21, 2025 Referring Physician EMIGDIO Mari. Reason for Consultation End-stage renal disease management History of Present Illness 74-year-old patient with significant history of end-stage renal disease on hemodialysis TTS with last dialysis on , hypertension, diabetes type 2, CAD, CHF, glaucoma currently being evaluated at [facility] for CAD and had a planned angiogram next week. Patient presents with left-sided chest pain 5/10 nonradiating worse with exertion associated with the shortness of breath, orthopnea as well as bilateral hand numbness. He denies fever chills cough and has been compliant with his medications. Laboratory data revealed severe hyperkalemia, azotemia, troponin elevation, chest x-ray with pulmonary edema. Past Medical History CAD, CHF, end-stage renal disease, anemia, hyperlipidemia, hypertension Past Surgical History Left upper arm AV fistula creation Allergies: Coded Allergies: NO KNOWN ALLERGIES (Unverified , 05/21/25) Current Medications Current Medications Medications (Trade) Dose Ordered Sig/Rakan Route PRN Reason Start Time Stop Time Status Last Admin Nitroglycerin (Ntrostat Sublingual) 0.4 mg Q5MINP PRN SL FOR CHEST PAIN 05/21/25 03:45 Morphine Sulfate 2 mg Q30M PRN IV FOR CHEST PAIN 05/21/25 03:45 Albuterol (Ventolin Medneb) 2.5 mg Q8HR NEB 05/21/25 06:00 05/21/25 14:07 Ipratropium [place] (Atrovent Medneb) 0.5 mg Q8HR NEB 05/21/25 06:00 05/21/25 14:07 Carvedilol (Coreg Tablet) 12.5 mg Q12HR PO 05/21/25 10:00 05/21/25 10:20 Nifedipine (Procardia Xl (Time-Release)) 30 mg DAILY PO 05/21/25 10:00 05/21/25 10:20 Diagnostic Test (Pha) (Accu-Chek Comfort Curve T) 1 strip ACHS 05/21/25 07:00 05/21/25 11:30 Insulin Human Regular (InsuLIN R) ACHS SC 05/21/25 07:00 05/21/25 07:04 Dextrose 50 ml UD PRN IV Blood Sugar LESS THAN 60 05/21/25 06:00 Pantoprazole Sodium (Protonix Tablet) 40 mg DAILY@0600 PO 05/22/25 06:00 Heparin Sodium (Porcine) 5,000 units Q12HR SC 05/21/25 10:00 05/21/25 10:21 Family History Patient does not recall Social History He denies smoking alcohol or drug abuse Review of Systems HEENT: Oral mucosa dry Neck no JVD Cardiovascular: Denies for chest pain denies orthopnea or PND Respiratory: Positive for cough Gastrointestinal: Denies for nausea vomiting Musculoskeletal: Denies myalgias Neurological: Denies focal weakness Dermatological: Denies any rash The rest of the review of systems were reviewed pertinent positives and pertinent negatives are as per HPI up to 12 points review of systems H&P Exam Vital Signs/I&O Vital Sign Date Time Temp Pulse Resp B/P (MAP) Pulse Ox O2 Delivery O2 Flow Rate FiO2 05/21/25 12:00 97.4 73 16 134/63 (86) 92 97.4 05/21/25 07:57 Nasal Cannula* 2 28 Physical Exam HEENT: No evidence of JVD, no oral ulcers. Pulmonary: Crackles on auscultation bilaterally Cardiovascular S1-S2, no S3 or S4 Abdomen: Bowel sounds positive, soft no rebound tenderness Skin: No rash Neurological: Alert, oriented, no focal weakness Access: Left upper extremity AV fistula positive bruit and thrill Labs/Diagnostic Data Labs/Diagnostic Data Laboratory Tests Test 05/21/25 12:34 05/21/25 10:27 05/21/25 10:20 05/21/25 09:11 Range/Units POC Glucose 91 145 H 94 70-106 mg/dl Troponin I High Sensitivity 214 *H </=54 ng/L Test 05/21/25 08:11 05/21/25 07:02 05/21/25 05:48 05/21/25 03:18 Range/Units Troponin I High Sensitivity 237 *H 181 *H 120 *H </=54 ng/L POC Glucose 137 H 70-106 mg/dl White Blood Count 4.6 # 4.4-10.8 10^3/uL Red Blood Count 2.99 L 4.5-5.90 10^6/uL Hemoglobin 9.6 L 13.5-17.5 g/dL Hematocrit 28.4 #L 41.0-53.0 % Mean Corpuscular Volume 95.2 80.0-100.0 fL Mean Corpuscular Hemoglobin 32.0 28.0-32.0 pg Mean Corpuscular Hemoglobin Concent 33.6 32.0-36.0 g/dL Red Cell Distribution Width 14.7 H 11.8-14.3 % Platelet Count 150 140-450 10^3/uL Mean Platelet Volume 8.2 6.9-10.8 fL Neutrophils (%) (Auto) 55.6 37.0-80.0 % Lymphocytes (%) (Auto) 27.7 10.0-50.0 % Monocytes (%) (Auto) 13.0 H 0.0-12.0 % Eosinophils (%) (Auto) 2.2 0.0-7.0 % Basophils (%) (Auto) 1.5 0.0-2.0 % Neutrophils # (Auto) 2.5 1.6-8.6 10 ^3/uL Lymphocytes # (Auto) 1.3 0.4-5.4 10 ^3/uL Monocytes # (Auto) 0.6 0-1.3 10 ^3/uL Eosinophils # (Auto) 0.1 0-0.8 10 ^3/uL Basophils # (Auto) 0.1 0-0.2 10 ^3/uL Nucleated Red Blood Cells 0.0 % Sodium Level 145 136-145 mmol/L Potassium Level 6.0 *H 3.5-5.1 mmol/L Chloride Level 103 98-107 mmol/L Carbon Dioxide Level 25 20-31 mmol/L Anion Gap 17 H 5-15 Blood Urea Nitrogen 98 *H 9-23 mg/dL Creatinine 11.92 *H 0.700-1.30 mg/dL Glomerular Filtration Rate Calc 4 >90 mL/min BUN/Creatinine Ratio 8.2 L 10.0-20.0 Serum Glucose 149 H 74-106 mg/dL Calcium Level 7.8 L 8.7-10.4 mg/dL Test 05/21/25 01:41 05/21/25 01:21 05/21/25 01:20 05/21/25 01:16 Range/Units POC Glucose 186 H 70-106 mg/dl Influenza Type A Antigen Negative Negative Influenza Type B Antigen Negative Negative SARS-CoV-2 Antigen (Rapid) Negative NEGATIVE Troponin I High Sensitivity 92 *H </=54 ng/L Blood Gas Specimen Type Arterial Blood Gas Sample Site Right radial Blood Gas Patient Temperature 37.0 Arterial Blood Date Drawn [id number] Arterial Blood pH 7.358 7.350-7.450 Arterial Blood Partial Pressure CO2 38.0 35.0-48.0 mmHg Arterial Blood Partial Pressure O2 116.1 H 83.0-108.0 mmHg Arterial Blood HCO3 20.9 L 21.0-28.0 mmol/L Arterial Blood Oxygen Saturation 97.2 94.0-98.0 % Arterial Blood Base Excess -4.1 L -2.0-3.0 mmol/L Arterial Blood Oxyhemoglobin 96.0 94.0-98.0 % Arterial Blood Carboxyhemoglobin 1.1 0.5-1.5 % Arterial Blood Methemoglobin 0.1 0.0-1.5 % Harshad Test Yes Blood Gas Total Hemoglobin 10.50 L 13.5-17.5 g/dL Blood Gas Set Respiration Rate 12.0 Blood Gas Modality Mask - bipap FiO2 % 50.0 Blood Gas EPAP 5 Blood Gas IPAP 12 Test 05/21/25 00:15 Range/Units White Blood Count 7.5 4.4-10.8 10^3/uL Red Blood Count 3.54 L 4.5-5.90 10^6/uL Hemoglobin 11.1 L 13.5-17.5 g/dL Hematocrit 34.1 L 41.0-53.0 % Mean Corpuscular Volume 96.5 80.0-100.0 fL Mean Corpuscular Hemoglobin 31.4 28.0-32.0 pg Mean Corpuscular Hemoglobin Concent 32.6 32.0-36.0 g/dL Red Cell Distribution Width 14.8 H 11.8-14.3 % Platelet Count 186 140-450 10^3/uL Mean Platelet Volume 7.9 6.9-10.8 fL Neutrophils (%) (Auto) 48.4 37.0-80.0 % Lymphocytes (%) (Auto) 37.2 10.0-50.0 % Monocytes (%) (Auto) 10.1 0.0-12.0 % Eosinophils (%) (Auto) 3.1 0.0-7.0 % Basophils (%) (Auto) 1.2 0.0-2.0 % Neutrophils # (Auto) 3.6 1.6-8.6 10 ^3/uL Lymphocytes # (Auto) 2.8 0.4-5.4 10 ^3/uL Monocytes # (Auto) 0.8 0-1.3 10 ^3/uL Eosinophils # (Auto) 0.2 0-0.8 10 ^3/uL Basophils # (Auto) 0.1 0-0.2 10 ^3/uL Nucleated Red Blood Cells 0.0 % Prothrombin Time 10.9 9.3-11.8 sec Prothrombin Time INR 1.03 0.9-1.15 Sodium Level 144 136-145 mmol/L Potassium Level 5.9 *H 3.5-5.1 mmol/L Chloride Level 103 98-107 mmol/L Carbon Dioxide Level 24 20-31 mmol/L Anion Gap 17 H 5-15 Blood Urea Nitrogen 92 *H 9-23 mg/dL Creatinine 11.53 *H 0.700-1.30 mg/dL Glomerular Filtration Rate Calc 4 >90 mL/min BUN/Creatinine Ratio 8.0 L 10.0-20.0 Serum Glucose 201 H 74-106 mg/dL Hemoglobin A1c 6.0 H <5.7 % A1C Lactic Acid Level 1.3 0.4-2.0 mmol/L Calcium Level 7.7 L 8.7-10.4 mg/dL Phosphorus Level 5.0 2.4-5.1 mg/dL Magnesium Level 2.7 H 1.6-2.6 mg/dL Total Bilirubin 0.2 0.2-1.0 mg/dL Aspartate Amino Transferase (AST) 32 <34 U/L Alanine Aminotransferase (ALT) 24 7-40 U/L Alkaline Phosphatase 103 46-116 U/L Troponin I High Sensitivity 86 *H </=54 ng/L B-Type Natriuretic Peptide 1469.48 0-100 pg/mL Total Protein 8.2 5.7-8.2 g/dL Albumin 4.8 3.2-4.8 g/dL Lipase 96 H 12-53 U/L Thyroid Stimulating Hormone (TSH) 4.06 0.55-4.78 uIU/mL Plasma/Serum Blood Alcohol 4.8 <10 mg/dL Chest x-ray shows pulmonary edema Assessment Assessment: 1. End-stage renal disease on hemodialysis TTS via AV fistula 2. Hyperkalemia 3. Fluid overload 4. Chest pain, NSTEMI 5. Hyperlipidemia 6. Hypertension 7. Anemia of end-stage renal disease 8. Acute hypoxic respiratory failure Plan: Hemodialysis stat today, 1K bath, and maximize UF. Fluid restriction less than 1 L per day Cardiac evaluation, he is scheduled to have an angiogram next week at [place] per patient Continue beta-bernice, aspirin Consult cardiology 2D echo Rony for goal hemoglobin 10 grams/deciliter to 11 grams/deciliter Thank you very much Plan discussed with: Patient CARMINA ALLEN MD May 21, 2025 15:36
[2025-05-21 18:19] LABS: INR 1.04 (0.9-1.15); Partial Thromboplastin Time 28.7 SEC (24.5-34.5)
--- NOTE | 2025-05-21 18:47 | DVHSR ---
APPROVED REPORT EXAM: Two-dimensional and M-mode echocardiogram with Doppler and color Doppler. Blood Pressure: 127/61 mmHg INDICATION SOB HF Exacerbation5' 9" Contrast Details Indication: 205 RISK FACTORS Height: 5' 9", Weight: 205 DIMENSIONS LVDd5.4 (3.8-5.7cm)LA (2D)4.0 (1.9-4.0cm)Aortic Root4.2 (2.0-3.7cm) LVDs3.6 (2.5-4.0cm)LA (MM) (1.9-4.0cm)Aortic Cusp Exc1.7 (1.5-2.0cm) EF (%) 62.0 (55-70%)Rt. Atrium4.3 (1.9-4.0cm)Asc. Aorta cm IVSd1.2 (0.7-1.1cm)RV (D) (1.8-2.4cm) PWd1.3 (0.7-1.1cm) Mitral Valve MitralMitral Stenosis E wave1.40m/sMV Mean GR.mmHg A wave1.10m/sMV Peak GR.mmHg E/A ratio1.32D MVAcm2 Aortic Valve Aortic ValveAortic Stenosis V11.00m/Nissa Mean GR.6mmHg V21.60m/Nissa Peak GR.11mmHg LVOT Diameter2.1 (1.8-2.4cm)Doppler AVA2.16cm2 Pulmonic Valve V20.80m/s Tricuspid Valve TR Velocity3.20m/s [id number] Conclusion LV EF IS 62% MODERATELY DILATED LA MODERATE DEGREE MR MODERATE DEGREE PULMONARY HYPERTENSION RVSP IS 50 MM OF HG NORMAL VALVES NO EFFSION
--- NOTE | 2025-05-21 18:48 | DVHPN2 ---
Objective Vitals Vital Signs Date Time Temp Pulse Resp B/P (MAP) Pulse Ox O2 Delivery O2 Flow Rate FiO2 05/21/25 16:00 97.5 77 16 160/71 (100) 96 97.5 05/21/25 15:00 Nasal Cannula* 2 28 Medications Current Medications Medications Dose Ordered Sig/Rakan Route Start Time Stop Time Status Last Admin Dose Admin Nitroglycerin 0.4 mg Q5MINP PRN SL 05/21/25 03:45 Morphine Sulfate 2 mg Q30M PRN IV 05/21/25 03:45 Albuterol 2.5 mg Q8HR NEB 05/21/25 06:00 05/21/25 14:07 2.5 MG Ipratropium [place] 0.5 mg Q8HR NEB 05/21/25 06:00 05/21/25 14:07 0.5 MG Carvedilol 12.5 mg Q12HR PO 05/21/25 10:00 05/21/25 10:20 12.5 MG Nifedipine 30 mg DAILY PO 05/21/25 10:00 05/21/25 10:20 30 MG Diagnostic Test (Pha) 1 strip ACHS 05/21/25 07:00 05/21/25 17:06 1 STRIP Insulin Human Regular ACHS SC 05/21/25 07:00 05/21/25 07:04 2 UNITS Dextrose 50 ml UD PRN IV 05/21/25 06:00 Pantoprazole Sodium 40 mg DAILY@0600 PO 05/22/25 06:00 Heparin Sodium (Porcine) 5,000 units Q12HR SC 05/21/25 10:00 05/21/25 10:21 5,000 UNITS Laboratory Results Laboratory Tests 05/21/25 05:48 Chemistry Test 05/21/25 00:15 05/21/25 05:48 Albumin 4.8 g/dL (3.2-4.8) Calcium Level 7.7 mg/dL (8.7-10.4) L 7.8 mg/dL (8.7-10.4) L Magnesium Level 2.7 mg/dL (1.6-2.6) H Phosphorus Level 5.0 mg/dL (2.4-5.1) Total Protein 8.2 g/dL (5.7-8.2) Coagulation Test 05/21/25 00:15 05/21/25 17:53 Prothrombin Time 10.9 sec (9.3-11.8) 11.0 sec (9.3-11.8) Prothrombin Time INR 1.03 (0.9-1.15) 1.04 (0.9-1.15) Activated Partial Thromboplast Time 28.7 SEC (24.5-34.5) Lipid panel Test 05/21/25 00:15 Lipase 96 U/L (12-53) H Cardiac Markers Test 05/21/25 00:15 B-Type Natriuretic Peptide 1469.48 pg/mL (0-100) LFT Test 05/21/25 00:15 Alanine Aminotransferase (ALT) 24 U/L (7-40) Alkaline Phosphatase 103 U/L (46-116) Aspartate Amino Transferase (AST) 32 U/L (<34) Total Bilirubin 0.2 mg/dL (0.2-1.0) HgA1c, TSH Test 05/21/25 00:15 Hemoglobin A1c 6.0 % A1C (<5.7) H Thyroid Stimulating Hormone (TSH) 4.06 uIU/mL (0.55-4.78) Blood Gas Results Test 05/21/25 01:16 Arterial Blood pH 7.358 (7.350-7.450) FiO2 % 50.0 IVETH CAZARES MD May 21, 2025 18:48
[2025-05-21] MEDS: cefTRIAXone 1GM/50ML D5W 50 ML IV ONE (22:41)
--- NOTE | 2025-05-21 23:29 | DVHINCON2 ---
Date Seen: May 21, [address] Stewart Reason for Consultation NSTEMI History of Present Illness This is a 74-year-old male with a past medical history of end-stage renal disease on hemodialysis, hypertension, type 2 diabetes mellitus, coronary artery disease, and congestive heart failure presented to the emergency department with a complaint of shortness of breath that has progressively worsened over the past few days. Patient also reports the recent onset of sharp, pleuritic chest pain that is worsened with deep inspiration, along with associated bilateral hand numbness. He denies any recent fever, cough, or leg swelling. He follows with cardiology at [place] and is scheduled for a left heart catheterization next Friday as part of pre operative evaluation for a potential kidney transplant. In the ED, his 12 lead ECG showed normal sinus rhythm. A prior echocardiogram from October 2024 demonstrated a preserved left ventricular ejection fraction of 55-60%. Serial troponins were noted to be elevated and trending upward 86, 120s, 237, and 214, BNP 1469 pg/mL. Chest x-ray showed cardiomegaly with mild pulmonary congestion. Patient was admitted to the hospital. I am asked to consult on this patient. Past Medical History As stated in HPI Past Surgical History Denies Allergies: Coded Allergies: NO KNOWN ALLERGIES (Unverified , 05/21/25) Current Medications Current Medications Medications (Trade) Dose Ordered Sig/Rakan Route PRN Reason Start Time Stop Time Status Last Admin Nitroglycerin (Ntrostat Sublingual) 0.4 mg Q5MINP PRN SL FOR CHEST PAIN 05/21/25 03:45 Morphine Sulfate 2 mg Q30M PRN IV FOR CHEST PAIN 05/21/25 03:45 Albuterol (Ventolin Medneb) 2.5 mg Q8HR NEB 05/21/25 06:00 05/21/25 14:07 Ipratropium [place] (Atrovent Medneb) 0.5 mg Q8HR NEB 05/21/25 06:00 05/21/25 14:07 Carvedilol (Coreg Tablet) 12.5 mg Q12HR PO 05/21/25 10:00 05/21/25 10:20 Nifedipine (Procardia Xl (Time-Release)) 30 mg DAILY PO 05/21/25 10:00 05/21/25 10:20 Diagnostic Test (Pha) (Accu-Chek Comfort Curve T) 1 strip ACHS 05/21/25 07:00 05/21/25 11:30 Insulin Human Regular (InsuLIN R) ACHS SC 05/21/25 07:00 05/21/25 07:04 Dextrose 50 ml UD PRN IV Blood Sugar LESS THAN 60 05/21/25 06:00 Pantoprazole Sodium (Protonix Tablet) 40 mg DAILY@0600 PO 05/22/25 06:00 Heparin Sodium (Porcine) 5,000 units Q12HR SC 05/21/25 10:00 05/21/25 10:21 Review of Systems Constitutional: Denies fever, chills, weight loss Ears, Nose, & Throat: No symptom reported Eyes: No symptom reported Neurological: No symptoms reported Pulmonary/Respiratory: Positive for dyspnea. Denies cough or hemoptysis Cardiovascular: Positive for chest pain and shortness of breath. No palpitation or syncope Gastrointestinal: No symptom reported Genitourinary: No symptom reported Musculoskeletal: No symptom reported Skin: No symptom reported Psychiatric: No symptom reported Endocrine: No symptom reported Hemotologic/Lymphatic: No symptom reported Vital Signs Vital Signs Date Time Temp Pulse Resp B/P (MAP) Pulse Ox O2 Delivery O2 Flow Rate FiO2 05/21/25 12:00 97.4 73 16 134/63 (86) 92 97.4 05/21/25 07:57 Nasal Cannula* 2 28 Physical Exam GENERAL: Alert and oriented x 3. No acute distress. EYES: PERRL, EOMI. Anicteric. HENT: Moist mucous membranes. LUNGS: Mild bibasilar crackles. CARDIOVASCULAR: Regular rate and rhythm. ABDOMEN: Soft, nontender and nondistended. EXTREMITIES: +1 BLE pitting edema. NEUROLOGIC: No focal neurological deficits. SKIN: Warm, dry. Labs/Diagnostic Data Labs Test 05/21/25 12:34 05/21/25 10:20 05/21/25 05:48 05/21/25 01:21 Range/Units POC Glucose 91 70-106 mg/dl Troponin I High Sensitivity 214 *H </=54 ng/L White Blood Count 4.6 # 4.4-10.8 10^3/uL Red Blood Count 2.99 L 4.5-5.90 10^6/uL Hemoglobin 9.6 L 13.5-17.5 g/dL Hematocrit 28.4 #L 41.0-53.0 % Mean Corpuscular Volume 95.2 80.0-100.0 fL Mean Corpuscular Hemoglobin 32.0 28.0-32.0 pg Mean Corpuscular Hemoglobin Concent 33.6 32.0-36.0 g/dL Red Cell Distribution Width 14.7 H 11.8-14.3 % Platelet Count 150 140-450 10^3/uL Mean Platelet Volume 8.2 6.9-10.8 fL Neutrophils (%) (Auto) 55.6 37.0-80.0 % Lymphocytes (%) (Auto) 27.7 10.0-50.0 % Monocytes (%) (Auto) 13.0 H 0.0-12.0 % Eosinophils (%) (Auto) 2.2 0.0-7.0 % Basophils (%) (Auto) 1.5 0.0-2.0 % Neutrophils # (Auto) 2.5 1.6-8.6 10 ^3/uL Lymphocytes # (Auto) 1.3 0.4-5.4 10 ^3/uL Monocytes # (Auto) 0.6 0-1.3 10 ^3/uL Eosinophils # (Auto) 0.1 0-0.8 10 ^3/uL Basophils # (Auto) 0.1 0-0.2 10 ^3/uL Nucleated Red Blood Cells 0.0 % Sodium Level 145 136-145 mmol/L Potassium Level 6.0 *H 3.5-5.1 mmol/L Chloride Level 103 98-107 mmol/L Carbon Dioxide Level 25 20-31 mmol/L Anion Gap 17 H 5-15 Blood Urea Nitrogen 98 *H 9-23 mg/dL Creatinine 11.92 *H 0.700-1.30 mg/dL Glomerular Filtration Rate Calc 4 >90 mL/min BUN/Creatinine Ratio 8.2 L 10.0-20.0 Serum Glucose 149 H 74-106 mg/dL Calcium Level 7.8 L 8.7-10.4 mg/dL Influenza Type A Antigen Negative Negative Influenza Type B Antigen Negative Negative SARS-CoV-2 Antigen (Rapid) Negative NEGATIVE Test 05/21/25 01:16 05/21/25 00:15 Range/Units Blood Gas Specimen Type Arterial Blood Gas Sample Site Right radial Blood Gas Patient Temperature 37.0 Arterial Blood Date Drawn [id number] Arterial Blood pH 7.358 7.350-7.450 Arterial Blood Partial Pressure CO2 38.0 35.0-48.0 mmHg Arterial Blood Partial Pressure O2 116.1 H 83.0-108.0 mmHg Arterial Blood HCO3 20.9 L 21.0-28.0 mmol/L Arterial Blood Oxygen Saturation 97.2 94.0-98.0 % Arterial Blood Base Excess -4.1 L -2.0-3.0 mmol/L Arterial Blood Oxyhemoglobin 96.0 94.0-98.0 % Arterial Blood Carboxyhemoglobin 1.1 0.5-1.5 % Arterial Blood Methemoglobin 0.1 0.0-1.5 % Harshad Test Yes Blood Gas Total Hemoglobin 10.50 L 13.5-17.5 g/dL Blood Gas Set Respiration Rate 12.0 Blood Gas Modality Mask - bipap FiO2 % 50.0 Blood Gas EPAP 5 Blood Gas IPAP 12 Prothrombin Time 10.9 9.3-11.8 sec Prothrombin Time INR 1.03 0.9-1.15 Hemoglobin A1c 6.0 H <5.7 % A1C Lactic Acid Level 1.3 0.4-2.0 mmol/L Phosphorus Level 5.0 2.4-5.1 mg/dL Magnesium Level 2.7 H 1.6-2.6 mg/dL Total Bilirubin 0.2 0.2-1.0 mg/dL Aspartate Amino Transferase (AST) 32 <34 U/L Alanine Aminotransferase (ALT) 24 7-40 U/L Alkaline Phosphatase 103 46-116 U/L B-Type Natriuretic Peptide 1469.48 0-100 pg/mL Total Protein 8.2 5.7-8.2 g/dL Albumin 4.8 3.2-4.8 g/dL Lipase 96 H 12-53 U/L Thyroid Stimulating Hormone (TSH) 4.06 0.55-4.78 uIU/mL Plasma/Serum Blood Alcohol 4.8 <10 mg/dL Assessment Rule out acute coronary syndrome. Rule out progressive CAD. Acute on chronic heart failure. NSTEMI. End-stage renal disease on hemodialysis. Hypertension. Diabetes type 2. Obesity. Plan/Recommendation I agree with your ongoing assessment and care of plan. Patient has been seen by Jenni Mari NP on my behalf, her and I discussed the plan with the patient. Echocardiogram to assess for new wall motion abnormalities or pericardial effusion, and to evaluate signs of uremic pericarditis or CHF progression. Chest pain protocol, continue with O2 supplement. Daily weight, strict intake and output. Hemodialysis treatment per Nephrology. The patient's symptoms and laboratory findings are concerning for acute coronary syndrome, likely non-STEMI myocardial infarction with possible concurrent heart failure exacerbation. Tentative plan for [facility] on Friday05/23/25. Discussed plan with patient and in agreement with [facility]. Additional plan as per the hospital course. Plan discussed with: Patient NYHA Physical activity limitations: NA Date of Service: May 21, 2025 Billing Provider: CRISTINA GRIFFITHS MD Cardiology Common Codes: [id number] INP/OBS CARE (High) Cardiology Consultation Codes: [id number] CONSULT <60MIN CRISTINA GRIFFITHS MD May 21, 2025 14:54
[2025-05-22] VITALS (9 sets, daily range): BP systolic 118–144; BP diastolic 54–84; PULSE 74–93; RESP 16–22; TEMP 97.3–98.7; O2SAT 88–96
[2025-05-22] MEDS: ACETAMINOPHEN 325 MG TAB PO PRN (04:07)
[2025-05-22] MEDS: PANTOPRAZOLE 40 MG TAB PO SCH (06:14)
[2025-05-22] MEDS: cefTRIAXone 1GM/50ML D5W 50 ML IV SCH (08:59)
--- NOTE | 2025-05-22 10:27 | DVHPN2 ---
Consult Progress Note Subjective Patient reports: No new complaints Review of Systems: HEENT:Normal, RESPIRATORY:Normal Objective vital signs Vital Sign Date Time Temp Pulse Resp B/P (MAP) Pulse Ox O2 Delivery O2 Flow Rate FiO2 05/22/25 09:05 85 128/72 05/22/25 08:40 98.7 16 94 98.7 05/21/25 23:47 Nasal Cannula* 3 32 Total Intake and Output 05/21/25 05/21/25 05/22/25 15:00 23:00 07:00 Intake Total 150 ml Output Total 2000 ml Balance -2000 ml 150 ml medications Current Medications Medications Dose Ordered Sig/Rakan Route Start Time Stop Time Status Last Admin Dose Admin Nitroglycerin 0.4 mg Q5MINP PRN SL 05/21/25 03:45 Morphine Sulfate 2 mg Q30M PRN IV 05/21/25 03:45 Carvedilol 12.5 mg Q12HR PO 05/21/25 10:00 05/22/25 09:05 12.5 MG Nifedipine 30 mg DAILY PO 05/21/25 10:00 05/22/25 09:04 30 MG Diagnostic Test (Pha) 1 strip ACHS 05/21/25 07:00 05/22/25 06:14 1 STRIP Insulin Human Regular ACHS SC 05/21/25 07:00 05/21/25 21:48 6 UNITS Dextrose 50 ml UD PRN IV 05/21/25 06:00 Pantoprazole Sodium 40 mg DAILY@0600 PO 05/22/25 06:00 05/22/25 06:14 40 MG Heparin Sodium (Porcine) 5,000 units Q12HR SC 05/21/25 10:00 05/22/25 09:14 5,000 UNITS Ceftriaxone Sodium 50 ml @ 100 mls/hr DAILY@09 IV 05/22/25 09:00 05/22/25 08:59 100 MLS/HR Acetaminophen 650 mg Q6HP PRN PO 05/22/25 03:45 05/22/25 04:07 650 MG Examination: GENERAL:Normal, CVS:Normal laboratory and microbiology Laboratory Tests 05/21/25 05:48 Test 05/21/25 05:48 Range/Units Serum Glucose 149 H 74-106 mg/dL Problem List/Assessment/Plan Problem List/Assessment/Plan Rule out acute coronary syndrome Rule out progressive CAD Acute on chronic heart failure NSTEMI End-stage renal disease on hemodialysis Hypertension Diabetes type 2 Obesity Plan/Recommendation (Dr. Griffiths ): - Echo LV EF IS 62% MODERATELY DILATED LA MODERATE DEGREE MR MODERATE DEGREE PULMONARY HYPERTENSION RVSP IS 50 MM OF HG NORMAL VALVES NO EFFSION * Echocardiogram to assess for new wall motion abnormalities or pericardial effusion, and to evaluate signs of uremic pericarditis or CHF progression * Chest pain protocol, continue with O2 supplement * Daily weight, strict intake and output * Hemodialysis treatment per Nephrology The patient's symptoms and laboratory findings are concerning for acute coronary syndrome, likely non-STEMI myocardial infarction with possible concurrent heart failure exacerbation. The patient may benefit from a left heart catheterization for further diagnostic evaluation and management. Tentative plan for [facility] with Dr Rivera Griffiths on friday05/23/25. Discussed plan with patient and in agreement with [facility]. This medical document was created using an electronic medical record system with voice recognition software and computerized dictation system. Although this document has been carefully reviewed, there might still be some phonetic and typographical errors. Occasional wrong-word or ``sound-alike substitutions may have occurred due to the inherent limitations of voice recognition software. These areas are purely typographical due to imperfections of the software programs and do not reflect any compromise in the patient's medical care. Please read the chart carefully and recognize, using context, where these substitutions have occurred. Plan discussed with: Patient Plan discussed with: Patient Plan discussed with: Patient Date of Service: May 22, 2025 Billing Provider: CRISTINA GRIFFITHS MD Common Visit Codes: CONSULT ONLY Consultation Codes: [id number] CONSULT <45MIN KEY [employer] A[employer]LYST May 22, 2025 10:27
--- NOTE | 2025-05-22 15:07 | DVHPN2 ---
Progress Note - Dictate Date Seen: May 22, 2025 Has the PT tested + for MRSA If YES, has PT been informed?: No Medical Necessity Reason Pt with a Central, PICC or Fol: No Subjective Patient denies chest pain, complains of left lower leg discomfort since he had a contusion about a month ago. vital signs Vital Sign Date Time Temp Pulse Resp B/P (MAP) Pulse Ox O2 Delivery O2 Flow Rate FiO2 05/22/25 13:00 97.3 76 18 141/76 (97) 94 97.3 05/22/25 10:00 Nasal Cannula 3.0 05/22/25 10:00 32 Total Intake and Output 05/21/25 05/21/25 05/22/25 15:00 23:00 07:00 Intake Total 150 ml Output Total 2000 ml Balance -2000 ml 150 ml medications Current Medications Medications Dose Ordered Sig/Rakan Route Start Time Stop Time Status Last Admin Dose Admin Nitroglycerin 0.4 mg Q5MINP PRN SL 05/21/25 03:45 Morphine Sulfate 2 mg Q30M PRN IV 05/21/25 03:45 Carvedilol 12.5 mg Q12HR PO 05/21/25 10:00 05/22/25 09:05 12.5 MG Nifedipine 30 mg DAILY PO 05/21/25 10:00 05/22/25 09:04 30 MG Diagnostic Test (Pha) 1 strip ACHS 05/21/25 07:00 05/22/25 12:44 1 STRIP Insulin Human Regular ACHS SC 05/21/25 07:00 05/22/25 12:54 3 UNITS Dextrose 50 ml UD PRN IV 05/21/25 06:00 Pantoprazole Sodium 40 mg DAILY@0600 PO 05/22/25 06:00 05/22/25 06:14 40 MG Heparin Sodium (Porcine) 5,000 units Q12HR SC 05/21/25 10:00 05/22/25 09:14 5,000 UNITS Ceftriaxone Sodium 50 ml @ 100 mls/hr DAILY@09 IV 05/22/25 09:00 05/22/25 08:59 100 MLS/HR Acetaminophen 650 mg Q6HP PRN PO 05/22/25 03:45 05/22/25 04:07 650 MG objective HEENT: No evidence of JVD, no oral ulcers. Pulmonary: Lungs are clear on auscultation bilaterally Cardiovascular S1-S2, no S3 or S4 Abdomen: Bowel sounds positive, soft no rebound tenderness Skin: No rash Neurological: Alert, oriented, no focal weakness Musculoskeletal: Area of induration left lateral lower leg close to the ankle with tenderness to palpation, eschar in place no fluctuance see her drainage Hemodialysis access AV fistula positive bruit and thrill laboratory and microbiology Laboratory Tests 05/21/25 05:48 Test 05/21/25 05:48 Range/Units Serum Glucose 149 H 74-106 mg/dL Assessment/Plan Assessment: 1. End-stage renal disease on hemodialysis TTS via AV fistula 2. Hyperkalemia, improve with dialysis 3. Fluid overload, improved with dialysis 4. Chest pain, NSTEMI 5. Hyperlipidemia 6. Hypertension 7. Anemia of end-stage renal disease 8. Acute hypoxic respiratory failure 9. Left lower leg/ankle cellulitis Plan: Hemodialysis TTS Fluid restriction less than 1 L per day Cardiac evaluation, patient is scheduled for angiogram. He is basically anuric. Continue beta-bernice, aspirin Consult cardiology 2D echo Continue Rocephin, consult client care specialist, ultrasound of the soft tissue Continue carvedilol, nifedipine Rony for goal hemoglobin 10 grams/deciliter to 11 grams/deciliter Thank you very much Plan discussed with: Patient CARMINA ALLEN MD May 22, 2025 15:07
--- NOTE | 2025-05-22 16:30 | DVHPN2 ---
Subjective Overnight events noted. Patient is currently scheduled for left heart catheterization, denies any chest pain shortness of breath. Changes from previous H/P or p: No Changes Objective Vitals Vital Signs Date Time Temp Pulse Resp B/P (MAP) Pulse Ox O2 Delivery O2 Flow Rate FiO2 05/22/25 13:00 97.3 76 18 141/76 (97) 94 97.3 05/22/25 10:00 Nasal Cannula 3.0 05/22/25 10:00 32 Intake/Output Intake and Output 05/22/25 07:00 Intake Total 150 ml Output Total 2000 ml Balance -1850 ml Intake Oral 100 ml IV Total 50 ml Output Drainage Total 2000 ml Exam HEENT pupils are reactive Neck is supple CV is S1-S2 regular rate rate and rhythm Respiratory are clear GI positive bowel sound Extremity trace edema. 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 Medications Current Medications Medications Dose Ordered Sig/Rakan Route Start Time Stop Time Status Last Admin Dose Admin Nitroglycerin 0.4 mg Q5MINP PRN SL 05/21/25 03:45 Morphine Sulfate 2 mg Q30M PRN IV 05/21/25 03:45 Carvedilol 12.5 mg Q12HR PO 05/21/25 10:00 05/22/25 09:05 12.5 MG Nifedipine 30 mg DAILY PO 05/21/25 10:00 05/22/25 09:04 30 MG Diagnostic Test (Pha) 1 strip ACHS 05/21/25 07:00 05/22/25 12:44 1 STRIP Insulin Human Regular ACHS SC 05/21/25 07:00 05/22/25 12:54 3 UNITS Dextrose 50 ml UD PRN IV 05/21/25 06:00 Pantoprazole Sodium 40 mg DAILY@0600 PO 05/22/25 06:00 05/22/25 06:14 40 MG Heparin Sodium (Porcine) 5,000 units Q12HR SC 05/21/25 10:00 05/22/25 09:14 5,000 UNITS Ceftriaxone Sodium 50 ml @ 100 mls/hr DAILY@09 IV 05/22/25 09:00 05/22/25 08:59 100 MLS/HR Acetaminophen 650 mg Q6HP PRN PO 05/22/25 03:45 05/22/25 04:07 650 MG Laboratory Results Laboratory Tests 05/21/25 05:48 Coagulation Test 05/21/25 17:53 Prothrombin Time 11.0 sec (9.3-11.8) Prothrombin Time INR 1.04 (0.9-1.15) Activated Partial Thromboplast Time 28.7 SEC (24.5-34.5) Microbiology Microbiology Date/Time Source Procedure Growth Status 05/21/25 22:30 Nose MRSA Screen - Final Complete 05/21/25 00:15 Blood Blood Culture - Preliminary NO GROWTH AFTER 24 HOURS OF INCUBATION. Resulted Assessment/Plan Assessment/Plan 74-year-old male with a known history of hypertension, end-stage renal disease on hemodialysis, coronary artery disease, presented to the hospital with chest pain found to have 1. NSTEMI 2. Known coronary artery disease 3. End-stage renal disease on hemodialysis 4. Hypertension 5. Anemia of chronic disease 6. Acute hypoxic respiratory failure secondary to fluid overload -hemodialysis per Nephrology, left heart catheterization tomorrow by Cardiology. -continue O2 supplementation to keep O2 sats more than 92%. Plan discussed with: Patient Date of Service: May 22, 2025 Billing Provider: IVETH CAZARES MD Common Visit Codes: [id number] INP/OBS CARE(MOD) IVETH CAZARES MD May 22, 2025 16:30
[2025-05-22] MEDS: MORPHINE SULFATE INJ 2 MG/ml SYRG IV PRN (21:07)
[2025-05-22 22:06] LABS: Basophils # (auto) 0.1 10 ^3/uL (0-0.2); Basophils % (auto) 1.2 % (0.0-2.0); Eosinophils # (auto) 0.3 10 ^3/uL (0-0.8); Eosinophils % (auto) 4.1 % (0.0-7.0); Hematocrit 33.1 % (41.0-53.0); Hemoglobin 11.1 g/dL (13.5-17.5); Lymphocytes # (auto) 1.2 10 ^3/uL (0.4-5.4); Mean Corpuscular Hemoglobin 31.4 pg (28.0-32.0); Mean Corpuscular Hgb Conc. 33.5 g/dL (32.0-36.0); Mean Corpuscular Volume 93.6 fL (80.0-100.0); Monocytes # (auto) 0.7 10 ^3/uL (0-1.3); Monocytes % (auto) 10.5 % (0.0-12.0); Neutrophils # (auto) 4.2 10 ^3/uL (1.6-8.6); Neutrophils % (auto) 65.2 % (37.0-80.0); Nucleated Red Blood Cells % 0.1 %; Platelet Count (auto) 190 10^3/uL (140-450); Red Blood Cells 3.54 10^6/uL (4.5-5.90); Red Cell Distribution Width 14.5 % (11.8-14.3); White Blood Cell 6.5 10^3/uL (4.4-10.8)
[2025-05-22 22:21] LABS: INR 1.06 (0.9-1.15); Partial Thromboplastin Time 29.2 SEC (24.5-34.5); Prothrombin Time 11.2 sec (9.3-11.8)
[2025-05-22 22:26] LABS: Alanine Aminotransferase 11 U/L (7-40); Albumin 4.5 g/dL (3.2-4.8); Alkaline Phosphatase 92 U/L (46-116); Anion Gap 14 (5-15); Aspartate Aminotransferase 23 U/L (<34); BUN/Creatinine Ratio 7.2 (10.0-20.0); Carbon Dioxide 28 mmol/L (20-31); Sodium 137 mmol/L (136-145)
[2025-05-22 22:27] LABS: Bilirubin, Total 0.3 mg/dL (0.2-1.0)
[2025-05-22 22:30] LABS: Blood Urea Nitrogen 70 mg/dL (9-23); Calcium 7.9 mg/dL (8.7-10.4); Chloride 95 mmol/L (98-107); Glucose 124 mg/dL (74-106); Potassium 5.5 mmol/L (3.5-5.1)
--- NOTE | 2025-05-22 23:21 | DVHPN2 ---
Consult Progress Note Subjective Patient reports: No new complaints Other Systems: Patient was seen and evaluated in follow up. Patient is complaining of a headache. He is on 3 LPM NC. HGB 9.6, HCT 28.4. Telemetry reviewed. Objective vital signs Vital Sign Date Time Temp Pulse Resp B/P (MAP) Pulse Ox O2 Delivery O2 Flow Rate FiO2 05/22/25 09:05 85 128/72 05/22/25 08:40 98.7 16 94 98.7 05/21/25 23:47 Nasal Cannula* 3 32 Total Intake and Output 05/21/25 05/21/25 05/22/25 15:00 23:00 07:00 Intake Total 150 ml Output Total 2000 ml Balance -2000 ml 150 ml medications Current Medications Medications Dose Ordered Sig/Rakan Route Start Time Stop Time Status Last Admin Dose Admin Nitroglycerin 0.4 mg Q5MINP PRN SL 05/21/25 03:45 Morphine Sulfate 2 mg Q30M PRN IV 05/21/25 03:45 Carvedilol 12.5 mg Q12HR PO 05/21/25 10:00 05/22/25 09:05 12.5 MG Nifedipine 30 mg DAILY PO 05/21/25 10:00 05/22/25 09:04 30 MG Diagnostic Test (Pha) 1 strip ACHS 05/21/25 07:00 05/22/25 06:14 1 STRIP Insulin Human Regular ACHS SC 05/21/25 07:00 05/21/25 21:48 6 UNITS Dextrose 50 ml UD PRN IV 05/21/25 06:00 Pantoprazole Sodium 40 mg DAILY@0600 PO 05/22/25 06:00 05/22/25 06:14 40 MG Heparin Sodium (Porcine) 5,000 units Q12HR SC 05/21/25 10:00 05/22/25 09:14 5,000 UNITS Ceftriaxone Sodium 50 ml @ 100 mls/hr DAILY@09 IV 05/22/25 09:00 05/22/25 08:59 100 MLS/HR Acetaminophen 650 mg Q6HP PRN PO 05/22/25 03:45 05/22/25 04:07 650 MG Examination: GENERAL:Normal, HEENT:Normal, NECK:Normal, LUNGS:Normal, CVS:Normal, ABDOMEN:Normal, MSK:Normal laboratory and microbiology Laboratory Tests 05/21/25 05:48 Test 05/21/25 05:48 Range/Units Serum Glucose 149 H 74-106 mg/dL Problem List/Assessment/Plan Problem List/Assessment/Plan Problem List/Assessment/Plan Rule out acute coronary syndrome. Rule out progressive CAD. Acute on chronic heart failure. NSTEMI. End-stage renal disease on hemodialysis. Hypertension. Diabetes type 2. Obesity. Plan/Recommendation Continued all current supportive medical care. Patient has been seen by Jenni Mari NP on my behalf, her and I discussed the plan with the patient. Echocardiogram to assess for new wall motion abnormalities or pericardial effusion, and to evaluate signs of uremic pericarditis or CHF progression Chest pain protocol, continue with O2 supplement Daily weight, strict intake and output Hemodialysis treatment per Nephrology The patient's symptoms and laboratory findings are concerning for acute coronary syndrome, likely non-STEMI myocardial infarction with possible concurrent heart failure exacerbation. The patient may benefit from a left heart catheterization for further diagnostic evaluation and management. Tentative plan for [facility] with me on Friday05/23/25. Discussed plan with patient and in agreement with [facility]. Additional plan as per the hospital course. Plan discussed with: Patient Date of Service: May 22, 2025 Billing Provider: CRISTINA GRIFFITHS MD Cardiology Common Codes: [id number] INP/OBS CARE (High) Cardiology Consultation Codes: [id number] CONSULT <45MIN CRISTINA GRIFFITHS MD May 22, 2025 12:50
[2025-05-23] VITALS (15 sets, daily range): BP systolic 137–184; BP diastolic 61–90; PULSE 85–94; RESP 16–28; TEMP 97.8–98.4; O2SAT 86–98
[2025-05-23 06:50] LABS: Alkaline Phosphatase 82 U/L (46-116); Anion Gap 15 (5-15); Aspartate Aminotransferase 19 U/L (<34); BUN/Creatinine Ratio 7.3 (10.0-20.0); Carbon Dioxide 28 mmol/L (20-31); Sodium 137 mmol/L (136-145); Total Protein 7.2 g/dL (5.7-8.2)
[2025-05-23 06:51] LABS: Bilirubin, Total 0.4 mg/dL (0.2-1.0)
[2025-05-23 06:56] LABS: Chloride 94 mmol/L (98-107)
[2025-05-23 06:57] LABS: Alanine Aminotransferase < 9 U/L (7-40); Blood Urea Nitrogen 77 mg/dL (9-23); Calcium 7.3 mg/dL (8.7-10.4); Glucose 159 mg/dL (74-106)
[2025-05-23 07:06] LABS: Potassium 5.6 mmol/L (3.5-5.1)
--- NOTE | 2025-05-23 07:22 | ECG ---
[facility] Test Date: 2025-05-22 Test Time: 20:54:14 Pat Name: BEA SCHAEFER Department: Respiratoy Room: 0220T A Gender: M Nail Welter: FORD : 1950 Requested By: IVETH CAZARES Order Number: [id number] Reading MD: Sánchez Mayfield Measurements Intervals [place] Rate: 90 P: 40 GA: 211 QRS: -53 QRSD: 99 T: 93 QT: 413 QTc: 506 Interpretive Statements Sinus rhythm Left anterior fascicular block RSR' in V1 or V2, right VCD or RVH Abnrm T, consider ischemia, anterolateral lds Prolonged QT interval Electronically Signed On 05-24-2025 22:17:40 PDT by Sánchez Mayfield Please click the below link to view image of tracing.
--- NOTE | 2025-05-23 08:06 | DVH ---
EXAM: XR Chest, 1 View CLINICAL INDICATION: Pain TECHNIQUE: Frontal view of the chest. COMPARISON: XR Chest dated 05/21/2025 FINDINGS: LUNGS AND PLEURAL SPACES: See below. HEART: Cardiomegaly with pulmonary congestion and edema. Superimposed pneumonia cannot be excluded. MEDIASTINUM: Unremarkable. Normal mediastinal contour. BONES/JOINTS: Unremarkable. No acute fracture. IMPRESSION: Cardiomegaly with pulmonary congestion and edema. Superimposed pneumonia cannot be excluded.
[2025-05-23] MEDS: IODIXANOL 320MG/ML 100ML BTL IV ONE (08:47)
[2025-05-23] MEDS: fentaNYL CITRATE 100 MCG/2 ML VL ONE (09:34)
[2025-05-23] MEDS: ANGIOMAX 250 MG VIAL IV ONE (09:34)
[2025-05-23] MEDS: SODIUM CHL 0.9% 0 ML ONE (09:34)
[2025-05-23] MEDS: MIDAZOLAM HCL 2MG/2ML 2ml VIAL (1mg/ml) ONE (09:34)
[2025-05-23] MEDS: ALBUTEROL SULF 2.5 MG/0.5ML(0.5%) NEB SOLN NEB ONE (09:56)
[2025-05-23] MEDS: LIDOCAINE 2%HCL (LOCAL ANESTH.) INJ 20ML MDV ONE (10:27)
--- NOTE | 2025-05-23 11:19 | DVHOP ---
DATE OF SURGERY: 05/23/2025 TECHNIQUE PERFORMED: * Ultrasound of the right femoral artery. * Insertion of 6-[place] arterial line in the right femoral artery under fluoroscopic guidance and supervision. * Management of conscious sedation. * Left heart cath. * Left ventriculogram. * [place] selective left and right coronary angiography. * Right iliofemoral artery angiography. * Arteriotomy angiography of the right femoral artery. COMPLICATIONS: None. ASSISTANTS: Assisted by Dorene Baird. INDICATIONS: The patient with classical acute coronary syndrome. Troponin was 241. The patient is also on dialysis. DESCRIPTION OF PROCEDURE: Risks and benefits were discussed in a standard manner. The patient was explained indications, risks, benefits, and alternatives of treatment. He has given me informed consent, was brought to Quality Assurance Assistant. The patient's right groin was shaved, was cleaned with soap and Betadine. Ultrasound of right femoral artery was done. Under fluoroscopy and under ultrasound guidance, the right femoral artery was punctured and 6-[place] arterial line was placed under fluoroscopy. There were no complications. Subsequently, we put a JL4 catheter and a left coronary angio done. With the help of a JR4 catheter, we also did right coronary angio. With the help of Pigtail catheter, complete left heart cath also had been done. The left angio was done in a oblique view with total of 20 mL of dye. Post LV gram, left ventricular angiography had been performed with the help of pull-through technique. Aortic pressure was also performed. J-wire was passed. The pigtail catheter also has been discontinued. The right iliofemoral artery angiography was done. Arteriotomy, Angio-Seal was done. IMPRESSION: * Normal left main. * The left anterior descending artery is 100% occluded up to the proximal one-third region, JUANA grade 0 flow. * The circumflex, obtuse marginal artery, moderately large artery, normal. * The right coronary artery is a large dominant artery and is widely open, normal. The posterior descending artery at the terminal area is very well retrogradely filling, left anterior descending artery all the way to its distal proximal region. * Ejection fraction of left ventricle is 55%, mild hypokinesis of the anterior wall. CONCLUSION: The study has now revealed that the patient has underlying: * The ejection fraction of the left ventricle is 55%, hypokinesis of the anterior wall. * The left anterior descending artery is 100% chronically occluded up to the proximal one-third region, JUANA grade 0 flow. * Normal left main, normal circumflex, obtuse marginal artery. * Right coronary artery is a large dominant artery and filling up retrogradely artery very well. PLAN OF ACTION: The patient currently advised to see me in the office. I am going to explain him about all his options and thereafter we can make a further decision. Currently, he is stable to go home. Jacquelyn Ardon MD MP/HIRO/PO TID: [id number] RECEIPT: [id number]
[2025-05-23] MEDS: InsuLIN REG 1unit/0.01ml Soln (100units/ml) IV ONE (11:47)
[2025-05-23] MEDS: CALCIUM GLUC 1,000mg/50ml-NS 50 ML IV ONE (11:56)
[2025-05-23] MEDS: DEXTROSE (50%) 50ML SYRG IV ONE (11:56)
[2025-05-23] MEDS: ALBUTEROL SULF 2.5 MG/0.5ML(0.5%) NEB SOLN ONE (12:21)
[2025-05-23] MEDS: SODIUM CHL 0.9% 1000 ML BAG XX ONE (15:00)
[2025-05-23] MEDS ORDERED: MORPHINE SULFATE 4 MG/ML SYR/VIAL IV PRN (15:15)
--- NOTE | 2025-05-23 16:05 | DVHPN2 ---
Subjective Overnight events noted. Patient's left heart catheterization shows normal coronary arteries Changes from previous H/P or p: No Changes Objective Vitals Vital Signs Date Time Temp Pulse Resp B/P (MAP) Pulse Ox O2 Delivery O2 Flow Rate FiO2 05/23/25 13:00 97.8 89 20 155/77 (103) 86 97.8 05/23/25 12:30 Nasal Cannula 5.0 05/23/25 12:30 40 Intake/Output Intake and Output 05/23/25 07:00 Intake Total 1060 ml Output Total 150 ml Balance 910 ml Intake Oral 1060 ml Output Urine Total 150 ml # Voids 1 Exam HEENT pupils are reactive Neck is supple CV is S1-S2 regular rate rate and rhythm Respiratory bilateral diminished breath sounds at bases with a basal crackles GI positive bowel sound Extremity trace edema. 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 Medications Current Medications Medications Dose Ordered Sig/Rakan Route Start Time Stop Time Status Last Admin Dose Admin Nitroglycerin 0.4 mg Q5MINP PRN SL 05/21/25 03:45 Carvedilol 12.5 mg Q12HR PO 05/21/25 10:00 05/22/25 21:59 12.5 MG Nifedipine 30 mg DAILY PO 05/21/25 10:00 05/22/25 09:04 30 MG Diagnostic Test (Pha) 1 strip ACHS 05/21/25 07:00 05/23/25 11:39 1 STRIP Insulin Human Regular ACHS SC 05/21/25 07:00 05/23/25 11:50 3 UNITS Dextrose 50 ml UD PRN IV 05/21/25 06:00 Pantoprazole Sodium 40 mg DAILY@0600 PO 05/22/25 06:00 05/22/25 06:14 40 MG Heparin Sodium (Porcine) 5,000 units Q12HR SC 05/21/25 10:00 05/22/25 22:00 5,000 UNITS Ceftriaxone Sodium 50 ml @ 100 mls/hr DAILY@09 IV 05/22/25 09:00 05/22/25 08:59 100 MLS/HR Acetaminophen 650 mg Q6HP PRN PO 05/22/25 03:45 05/22/25 04:07 650 MG Morphine Sulfate 2 mg Q30M PRN IV 05/23/25 15:15 Laboratory Results Laboratory Tests 05/22/25 21:55 05/23/25 06:03 Chemistry Test 05/22/25 21:55 05/23/25 06:03 Albumin 4.5 g/dL (3.2-4.8) 4.0 g/dL (3.2-4.8) Calcium Level 7.9 mg/dL (8.7-10.4) L 7.3 mg/dL (8.7-10.4) L Total Protein 8.0 g/dL (5.7-8.2) 7.2 g/dL (5.7-8.2) Coagulation Test 05/22/25 21:55 Prothrombin Time 11.2 sec (9.3-11.8) Prothrombin Time INR 1.06 (0.9-1.15) Activated Partial Thromboplast Time 29.2 SEC (24.5-34.5) LFT Test 05/22/25 21:55 05/23/25 06:03 Alanine Aminotransferase (ALT) 11 U/L (7-40) < 9 U/L (7-40) Alkaline Phosphatase 92 U/L (46-116) 82 U/L (46-116) Aspartate Amino Transferase (AST) 23 U/L (<34) 19 U/L (<34) Total Bilirubin 0.3 mg/dL (0.2-1.0) 0.4 mg/dL (0.2-1.0) Microbiology Microbiology Date/Time Source Procedure Growth Status 05/21/25 22:30 Nose MRSA Screen - Final Complete 05/21/25 00:15 Blood Blood Culture - Preliminary NO GROWTH AFTER 48 HOURS OF INCUBATION. Resulted Assessment/Plan Assessment/Plan 74-year-old male with a known history of hypertension, end-stage renal disease on hemodialysis, coronary artery disease, presented to the hospital with chest pain found to have 1. NSTEMI status post left heart catheterization shows normal coronary artery 2. Known coronary artery disease 3. End-stage renal disease on hemodialysis 4. Hypertension 5. Anemia of chronic disease 6. Acute hypoxic respiratory failure secondary to fluid overload currently on 4 L of oxygen 7. Suspected pneumonia currently on IV antibiotic -hemodialysis per Nephrology, continue IV antibiotics -continue O2 supplementation to keep O2 sats more than 92%. Plan discussed with: Patient My Orders Orders - IVETH CAZARES MD Procedure Category Date Status Time * Wound Consult CONS 05/22/25 Transmitted Albuterol Medneb PHA 05/23/25 In Process (Ventolin Medneb) 09:29 Renal DIET 05/23/25 Transmitted Standard(2gna,3gk,Lopho) Lunch Date of Service: May 23, 2025 Billing Provider: IVETH CAZARES MD Common Visit Codes: [id number] INP/OBS CARE(MOD) IVETH CAZARES MD May 23, 2025 16:05
--- NOTE | 2025-05-23 18:18 | DVHPN2 ---
Progress Note - Dictate Date Seen: May 23, 2025 Has the PT tested + for MRSA If YES, has PT been informed?: No Medical Necessity Reason Pt with a Central, PICC or Fol: No Subjective seen on HD.tolerating well vital signs Vital Sign Date Time Temp Pulse Resp B/P (MAP) Pulse Ox O2 Delivery O2 Flow Rate FiO2 05/23/25 18:11 75 160/74 05/23/25 16:43 97.9 18 98 97.9 05/23/25 12:30 Nasal Cannula 5.0 05/23/25 12:30 40 Total Intake and Output 05/22/25 05/22/25 05/23/25 15:00 23:00 07:00 Intake Total 480 ml 580 ml 0 ml Output Total 150 ml Balance 480 ml 430 ml 0 ml medications Current Medications Medications Dose Ordered Sig/Rakan Route Start Time Stop Time Status Last Admin Dose Admin Nitroglycerin 0.4 mg Q5MINP PRN SL 05/21/25 03:45 Carvedilol 12.5 mg Q12HR PO 05/21/25 10:00 05/23/25 17:11 12.5 MG Nifedipine 30 mg DAILY PO 05/21/25 10:00 05/23/25 17:10 30 MG Diagnostic Test (Pha) 1 strip ACHS 05/21/25 07:00 05/23/25 17:06 1 STRIP Insulin Human Regular ACHS SC 05/21/25 07:00 05/23/25 11:50 3 UNITS Dextrose 50 ml UD PRN IV 05/21/25 06:00 Pantoprazole Sodium 40 mg DAILY@0600 PO 05/22/25 06:00 05/22/25 06:14 40 MG Heparin Sodium (Porcine) 5,000 units Q12HR SC 05/21/25 10:00 05/22/25 22:00 5,000 UNITS Ceftriaxone Sodium 50 ml @ 100 mls/hr DAILY@09 IV 05/22/25 09:00 05/22/25 08:59 100 MLS/HR Acetaminophen 650 mg Q6HP PRN PO 05/22/25 03:45 05/22/25 04:07 650 MG Morphine Sulfate 2 mg Q30M PRN IV 05/23/25 15:15 objective HEENT: No evidence of JVD, no oral ulcers. Pulmonary: Lungs are clear on auscultation bilaterally Cardiovascular S1-S2, no S3 or S4 Abdomen: Bowel sounds positive, soft no rebound tenderness Skin: No rash Neurological: Alert, oriented, no focal weakness Musculoskeletal: Area of induration left lateral lower leg close to the ankle with tenderness to palpation, eschar in place no fluctuance see her drainage Hemodialysis access AV fistula positive bruit and thrill laboratory and microbiology Laboratory Tests 05/23/25 06:03 05/22/25 21:55 Test 05/23/25 06:03 Range/Units Serum Glucose 159 H 74-106 mg/dL Assessment/Plan Assessment: 1. End-stage renal disease on hemodialysis TTS via AV fistula 2. Hyperkalemia 3. Fluid overload 4. Chest pain, NSTEMI 5. Hyperlipidemia 6. Hypertension 7. Anemia of end-stage renal disease 8. Acute hypoxic respiratory failure 9. Left lower leg/ankle cellulitis Plan: patient had angiogram done today. he was SOB post procedure, HD was scheduled to have it today rather than tomorrow. will continue HD on MWF schedule while in hospital Fluid restriction less than 1 L per day Continue beta-bernice, aspirin Consult cardiology 2D echo Continue Rocephin, consult social work supervisor, ultrasound of the soft tissue Continue carvedilol, nifedipine Rony for goal hemoglobin 10 grams/deciliter to 11 grams/deciliter Plan discussed with: Patient, Other SUSAN THORPE MD May 23, 2025 18:18
--- NOTE | 2025-05-23 23:34 | DVHPN2 ---
Progress Note - Dictate Date Seen: May 23, 2025 Has the PT tested + for MRSA If YES, has PT been informed?: No Medical Necessity Reason Pt with a Central, PICC or Fol: No Subjective Patient was seen and evaluated in follow up. Patiyadieln underwent left heart cath, [place] selective left and right coronary angiography, right iliofemoral artery angiography, arteriotomy angiography of the right femoral artery. The study has now revealed that the patient has underlying ejection fraction of the left ventricle is 55%, hypokinesis of the anterior wall. The left anterior descending artery is 100% chronically occluded up to the proximal one-third region, JUANA grade 0 flow. Normal left main, normal circumflex, obtuse marginal artery. Right coronary artery is a large dominant artery and filling up retrogradely artery very well. The patient currently advised to see me in the office. I am going to explain him about all his options and thereafter we can make a further decision. Currently, he is stable to go home. Telemetry reviewed. vital signs Vital Sign Date Time Temp Pulse Resp B/P (MAP) Pulse Ox O2 Delivery O2 Flow Rate FiO2 05/23/25 21:44 87 137/61 05/23/25 21:00 98.2 19 92 98.2 05/23/25 12:30 Nasal Cannula 5.0 05/23/25 12:30 40 Total Intake and Output 05/22/25 05/22/25 05/23/25 15:00 23:00 07:00 Intake Total 480 ml 580 ml 0 ml Output Total 150 ml Balance 480 ml 430 ml 0 ml medications Current Medications Medications Dose Ordered Sig/Rakan Route Start Time Stop Time Status Last Admin Dose Admin Nitroglycerin 0.4 mg Q5MINP PRN SL 05/21/25 03:45 Carvedilol 12.5 mg Q12HR PO 05/21/25 10:00 05/23/25 21:44 12.5 MG Nifedipine 30 mg DAILY PO 05/21/25 10:00 05/23/25 17:10 30 MG Diagnostic Test (Pha) 1 strip ACHS 05/21/25 07:00 05/23/25 21:43 1 STRIP Insulin Human Regular ACHS SC 05/21/25 07:00 05/23/25 21:48 4 UNITS Dextrose 50 ml UD PRN IV 05/21/25 06:00 Pantoprazole Sodium 40 mg DAILY@0600 PO 05/22/25 06:00 05/22/25 06:14 40 MG Heparin Sodium (Porcine) 5,000 units Q12HR SC 05/21/25 10:00 05/23/25 21:45 5,000 UNITS Ceftriaxone Sodium 50 ml @ 100 mls/hr DAILY@09 IV 05/22/25 09:00 05/22/25 08:59 100 MLS/HR Acetaminophen 650 mg Q6HP PRN PO 05/22/25 03:45 05/22/25 04:07 650 MG Morphine Sulfate 2 mg Q30M PRN IV 05/23/25 15:15 Docusate Sodium 100 mg BID PO 05/24/25 10:00 objective GENERAL: Alert and oriented x 3. No acute distress. EYES: PERRL, EOMI. Anicteric. HENT: Moist mucous membranes. LUNGS: Mild bibasilar crackles. CARDIOVASCULAR: Regular rate and rhythm. ABDOMEN: Soft, nontender and nondistended. EXTREMITIES: +1 BLE pitting edema. NEUROLOGIC: No focal neurological deficits. SKIN: Warm, dry. laboratory and microbiology Laboratory Tests 05/23/25 06:03 05/22/25 21:55 Test 05/23/25 06:03 Range/Units Serum Glucose 159 H 74-106 mg/dL Problem List Acute on chronic heart failure. NSTEMI. End-stage renal disease on hemodialysis. Hypertension. Diabetes type 2. Obesity. Assessment/Plan Continued all current supportive medical care. Coreg, Nifedipine. IV antibiotics as ordered. Morphine for pain. GI prophylactics. Additional plan as per the hospital course. Plan discussed with: Patient CRISTINA GRIFFITHS MD May 23, 2025 23:34
[2025-05-23] MEDS: DOCUSATE SOD 100 MG CAP PO ONE (23:46)
[2025-05-24] VITALS (9 sets, daily range): BP systolic 110–143; BP diastolic 54–79; PULSE 67–87; RESP 14–19; TEMP 97.3–98.5; O2SAT 92–100
[2025-05-24] MEDS: DOCUSATE SOD 100 MG CAP PO SCH (11:14)
--- NOTE | 2025-05-24 14:37 | ECG ---
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
[2025-05-24] MEDS ORDERED: IOHEXOL 350 MG/ML 100ML IJ ONE (16:45)
--- NOTE | 2025-05-24 17:26 | DVHPN2 ---
Progress Note - Dictate Date Seen: May 24, 2025 Has the PT tested + for MRSA If YES, has PT been informed?: No Medical Necessity Reason Pt with a Central, PICC or Fol: No Subjective sob vital signs Vital Sign Date Time Temp Pulse Resp B/P (MAP) Pulse Ox O2 Delivery O2 Flow Rate FiO2 05/24/25 16:59 98.3 67 16 114/54 (74) 99 98.3 05/24/25 10:00 Nasal Cannula 4.0 05/24/25 10:00 36 Total Intake and Output 05/23/25 05/23/25 05/24/25 15:00 23:00 07:00 Intake Total 0 ml 700 ml 100 ml Output Total 0 ml Balance 0 ml 700 ml 100 ml medications Current Medications Medications Dose Ordered Sig/Rakan Route Start Time Stop Time Status Last Admin Dose Admin Nitroglycerin 0.4 mg Q5MINP PRN SL 05/21/25 03:45 Carvedilol 12.5 mg Q12HR PO 05/21/25 10:00 05/24/25 11:14 12.5 MG Nifedipine 30 mg DAILY PO 05/21/25 10:00 05/24/25 11:14 30 MG Diagnostic Test (Pha) 1 strip ACHS 05/21/25 07:00 05/24/25 16:30 1 STRIP Insulin Human Regular ACHS SC 05/21/25 07:00 05/24/25 12:16 4 UNITS Dextrose 50 ml UD PRN IV 05/21/25 06:00 Pantoprazole Sodium 40 mg DAILY@0600 PO 05/22/25 06:00 05/24/25 06:24 40 MG Heparin Sodium (Porcine) 5,000 units Q12HR SC 05/21/25 10:00 05/24/25 11:26 5,000 UNITS Ceftriaxone Sodium 50 ml @ 100 mls/hr DAILY@09 IV 05/22/25 09:00 05/24/25 11:13 100 MLS/HR Acetaminophen 650 mg Q6HP PRN PO 05/22/25 03:45 05/24/25 11:40 650 MG Morphine Sulfate 2 mg Q30M PRN IV 05/23/25 15:15 Docusate Sodium 100 mg BID PO 05/24/25 10:00 05/24/25 11:14 100 MG objective HEENT: No evidence of JVD, no oral ulcers. Pulmonary: Lungs are clear on auscultation bilaterally Cardiovascular S1-S2, no S3 or S4 Abdomen: Bowel sounds positive, soft no rebound tenderness Skin: No rash Neurological: Alert, oriented, no focal weakness Musculoskeletal: Area of induration left lateral lower leg close to the ankle with tenderness to palpation, eschar in place no fluctuance see her drainage Hemodialysis access AV fistula positive bruit and thrill laboratory and microbiology Laboratory Tests 05/23/25 06:03 05/22/25 21:55 Test 05/23/25 06:03 Range/Units Serum Glucose 159 H 74-106 mg/dL Assessment/Plan Assessment: 1. End-stage renal disease on hemodialysis via AV fistula 2. Hyperkalemia 3. Fluid overload 4. Chest pain, NSTEMI 5. Hyperlipidemia 6. Hypertension 7. Anemia of end-stage renal disease 8. Acute hypoxic respiratory failure 9. Left lower leg/ankle cellulitis Plan: s/p HD Friday. Next HD Friday Patient is still hypoxic, plan for CT angio chest. will have patient dialyzed within 24 hours Fluid restriction less than 1 L per day Continue beta-bernice, aspirin Consult cardiology 2D echo Continue Rocephin, consult machine fixer Continue carvedilol, nifedipine Rony for goal hemoglobin 10 grams/deciliter to 11 grams/deciliter Dietary Evaluation Review Comments: Increase CHO to a CCHO-60 Renal Standard Diet for adequate amount energy support. Expected Outcomes/Goals: Controlled DM, avoid uremic syndrome Plan discussed with: Patient, Other SUSAN THORPE MD May 24, 2025 17:26
--- NOTE | 2025-05-24 17:45 | DVH ---
Indication: R/O PE Technique: CT axial images of the chest are obtained with intravenous contrast per CT angiogram prot ocol. Coronal and sagittal reformats were obtained. Radiation Dose Information: CTDI volume is 5.92 mGy. Dose-length product is 531.51 mGy*cm Comparison: None FINDINGS: There is no filling defect within main left and right pulmonary arteries. Segmental and subsegmental branches suboptimally opacified/ characterize. Trachea patent. No pneumothorax. Small bilateral pleural effusions. Bilateral lower lobe consolidatio n/atelectasis. Pulmonary ground-glass attenuation. Cardiomegaly. Coronary artery calcification disease. Small pericardial effusion. 14 [address]carinal [address] mph node. Right paratracheal lymph node measuring 10 mm. Left paratracheal lymph node measuring 14 m m. No supraclavicular, axillary lymphadenopathy. Bilateral renal cortical thinning / parenchymal atrophy, consistent with medical renal disease. Roxie cystectomy. Small hiatal hernia. Acute/ subacute right anterolateral 6th, 7th rib fractures. Old sternal body fracture IMPRESSION: No evidence for large pulmonary embolism. Bilateral lower lobe consolidation / atelectasis. Small bilateral pleural effusions. Pulmonary ground-glass attenuation which can be seen with edema, hypoventilatory changes. Acute/ subacute right anterolateral 6th and 7th rib fractures. Mediastinal lymphadenopathy. Cardiomegaly, coronary artery calcification disease, small pericardial effusion. Other findings as described.
--- NOTE | 2025-05-24 17:50 | DVHPN2 ---
Subjective Overnight events noted. Earlier I ordered D-dimer which was positive, CT angio to rule out PE has been ordered. EEG Changes from previous H/P or p: No Changes Objective Vitals Vital Signs Date Time Temp Pulse Resp B/P (MAP) Pulse Ox O2 Delivery O2 Flow Rate FiO2 05/24/25 16:59 98.3 67 16 114/54 (74) 99 98.3 05/24/25 10:00 Nasal Cannula 4.0 05/24/25 10:00 36 Intake/Output Intake and Output 05/24/25 07:00 Intake Total 800 ml Output Total 0 ml Balance 800 ml Intake Oral 800 ml Output Urine Total 0 ml Exam HEENT pupils are reactive Neck is supple CV is S1-S2 regular rate rate and rhythm Respiratory bilateral diminished breath sounds at bases with a basal crackles GI positive bowel sound Extremity trace edema. 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 Medications Current Medications Medications Dose Ordered Sig/Rakan Route Start Time Stop Time Status Last Admin Dose Admin Nitroglycerin 0.4 mg Q5MINP PRN SL 05/21/25 03:45 Carvedilol 12.5 mg Q12HR PO 05/21/25 10:00 05/24/25 11:14 12.5 MG Nifedipine 30 mg DAILY PO 05/21/25 10:00 05/24/25 11:14 30 MG Diagnostic Test (Pha) 1 strip ACHS 05/21/25 07:00 05/24/25 16:30 1 STRIP Insulin Human Regular ACHS SC 05/21/25 07:00 05/24/25 12:16 4 UNITS Dextrose 50 ml UD PRN IV 05/21/25 06:00 Pantoprazole Sodium 40 mg DAILY@0600 PO 05/22/25 06:00 05/24/25 06:24 40 MG Heparin Sodium (Porcine) 5,000 units Q12HR SC 05/21/25 10:00 05/24/25 11:26 5,000 UNITS Ceftriaxone Sodium 50 ml @ 100 mls/hr DAILY@09 IV 05/22/25 09:00 05/24/25 11:13 100 MLS/HR Acetaminophen 650 mg Q6HP PRN PO 05/22/25 03:45 05/24/25 11:40 650 MG Morphine Sulfate 2 mg Q30M PRN IV 05/23/25 15:15 Docusate Sodium 100 mg BID PO 05/24/25 10:00 05/24/25 11:14 100 MG Laboratory Results Laboratory Tests 05/22/25 21:55 05/23/25 06:03 Coagulation Test 05/24/25 14:30 D-Dimer, Quantitative 2.48 mg/L FEU (0.0-0.49) H Blood Gas Results Test 05/23/25 18:50 Arterial Blood pH 7.541 (7.350-7.450) FiO2 % 21.0 Microbiology Microbiology Date/Time Source Procedure Growth Status 05/21/25 22:30 Nose MRSA Screen - Final Complete 05/21/25 00:15 Blood Blood Culture - Preliminary NO GROWTH AFTER 72 HOURS OF INCUBATION. Resulted Assessment/Plan Assessment/Plan 74-year-old male with a known history of hypertension, end-stage renal disease on hemodialysis, coronary artery disease, presented to the hospital with chest pain found to have 1. NSTEMI status post left heart catheterization shows normal coronary artery 2. Known coronary artery disease 3. End-stage renal disease on hemodialysis 4. Hypertension 5. Anemia of chronic disease 6. Acute hypoxic respiratory failure secondary to fluid overload currently on 4 L of oxygen 7. Suspected pneumonia currently on IV antibiotic 8.elevated D-dimer ruled out pulmonary embolism -CT angio to rule out PE, hemodialysis afterwards - continue IV antibiotics -continue O2 supplementation to keep O2 sats more than 92%. Plan discussed with: Patient My Orders Orders - IVETH CAZARES MD Procedure Category Date Status Time Abg W/ Co-Ox RT 05/23/25 Logged 18:[address] 05/24/25 Resulted Contrast 15:24 Communication Order ORDERS 05/24/25 Transmitted 17:44 Azithromycin 500mg/ PHA 05/24/25 Logged 250ml (Zithromax 50 18:00 Azithromycin 500mg/ PHA 05/25/25 Logged 250ml (Zithromax 50 10:00 Date of Service: May 24, 2025 Billing Provider: IVETH CAZARES MD Common Visit Codes: [id number] INP/OBS CARE(MOD) IVETH CAZARES MD May 24, 2025 17:50
[2025-05-24] MEDS: AZITHROMYCIN 500MG/ 250ML 250 ML IV ONE (18:00)
--- NOTE | 2025-05-24 23:48 | DVHPN2 ---
Progress Note - Dictate Date Seen: May 24, 2025 Has the PT tested + for MRSA If YES, has PT been informed?: No Medical Necessity Reason Pt with a Central, PICC or Fol: No Subjective Patient was seen and evaluated in follow up. Patient is on 5 LPM NC. The patient is complaining of SOB. CTA chest shows no evidence for large pulmonary embolism, bilateral lower lobe consolidation / atelectasis, small bilateral pleural effusions, pulmonary ground-glass attenuation which can be seen with edema, hypoventilatory changes, acute/ subacute right anterolateral 6th and 7th rib fractures, mediastinal lymphadenopathy, cardiomegaly, coronary artery calcification disease, small pericardial effusion. Patient received HD yesterday. D-dimer 2.48. Telemetry reviewed. vital signs Vital Sign Date Time Temp Pulse Resp B/P (MAP) Pulse Ox O2 Delivery O2 Flow Rate FiO2 05/24/25 22:11 76 111/59 05/24/25 21:00 97.3 14 98 97.3 05/24/25 10:00 Nasal Cannula 4.0 05/24/25 10:00 36 Total Intake and Output 05/23/25 05/23/25 05/24/25 15:00 23:00 07:00 Intake Total 0 ml 700 ml 100 ml Output Total 0 ml Balance 0 ml 700 ml 100 ml medications Current Medications Medications Dose Ordered Sig/Rakan Route Start Time Stop Time Status Last Admin Dose Admin Nitroglycerin 0.4 mg Q5MINP PRN SL 05/21/25 03:45 Carvedilol 12.5 mg Q12HR PO 05/21/25 10:00 05/24/25 22:11 12.5 MG Nifedipine 30 mg DAILY PO 05/21/25 10:00 05/24/25 11:14 30 MG Diagnostic Test (Pha) 1 strip ACHS 05/21/25 07:00 05/24/25 22:13 1 STRIP Insulin Human Regular ACHS SC 05/21/25 07:00 05/24/25 22:13 4 UNITS Dextrose 50 ml UD PRN IV 05/21/25 06:00 Pantoprazole Sodium 40 mg DAILY@0600 PO 05/22/25 06:00 05/24/25 06:24 40 MG Heparin Sodium (Porcine) 5,000 units Q12HR SC 05/21/25 10:00 05/24/25 22:12 5,000 UNITS Ceftriaxone Sodium 50 ml @ 100 mls/hr DAILY@09 IV 05/22/25 09:00 05/24/25 11:13 100 MLS/HR Acetaminophen 650 mg Q6HP PRN PO 05/22/25 03:45 05/24/25 11:40 650 MG Morphine Sulfate 2 mg Q30M PRN IV 05/23/25 15:15 Docusate Sodium 100 mg BID PO 05/24/25 10:00 05/24/25 22:11 100 MG Azithromycin 250 ml @ 125 mls/hr DAILY IV 05/25/25 10:00 objective GENERAL: Alert and oriented x 3. No acute distress. EYES: PERRL, EOMI. Anicteric. HENT: Moist mucous membranes. LUNGS: Mild bibasilar crackles. CARDIOVASCULAR: Regular rate and rhythm. ABDOMEN: Soft, nontender and nondistended. EXTREMITIES: +1 BLE pitting edema. NEUROLOGIC: No focal neurological deficits. SKIN: Warm, dry. laboratory and microbiology Laboratory Tests 05/23/25 06:03 05/22/25 21:55 Test 05/23/25 06:03 Range/Units Serum Glucose 159 H 74-106 mg/dL Problem List Acute on chronic heart failure. NSTEMI status post left heart catheterization shows normal coronary artery. End-stage renal disease on hemodialysis. Hypertension. Diabetes type 2. Obesity. Anemia of chronic disease. Acute hypoxic respiratory failure. Hyperkalemia. Assessment/Plan Continued all current supportive medical care. IV antibiotics as ordered. Coreg, Nifedipine. Morphine for pain management. GI prophylactics. Nitro SL. Additional plan as per the hospital course. Dietary Evaluation Review Comments: Increase CHO to a CCHO-60 Renal Standard Diet for adequate amount energy support. Expected Outcomes/Goals: Controlled DM, avoid uremic syndrome Plan discussed with: Patient CRISTINA GRIFFITHS MD May 24, 2025 23:48
[2025-05-25] VITALS (8 sets, daily range): BP systolic 113–162; BP diastolic 50–80; PULSE 73–83; RESP 15–22; TEMP 36.6; O2SAT 94–100
[2025-05-25] MEDS ORDERED: SODIUM CHL 0.9% 1000 ML BAG XX ONE (10:30)
[2025-05-25 14:32] LABS: Base Excess 3.3 mmol/L (-2.0-3.0)
[2025-05-25] MEDS: AZITHROMYCIN 500MG/ 250ML 250 ML IV SCH (14:48)
[2025-05-25] MEDS ORDERED: ASPI-543 PO (15:56)
[2025-05-25] MEDS ORDERED: TAMS0.4C39 PO (15:56)
[2025-05-25] MEDS ORDERED: GABA-1308 PO (15:56)
[2025-05-25] MEDS ORDERED: DOCU-94 PO ×2 (15:56→16:14)
[2025-05-25] MEDS ORDERED: AMLO1TAB22 PO (15:56)
[2025-05-25] MEDS ORDERED: LOSA-534 PO (15:56)
[2025-05-25] MEDS ORDERED: CARV12.544 PO (15:56)
[2025-05-25] MEDS ORDERED: INSLANTI SC (15:56)
[2025-05-25] MEDS ORDERED: PANT40TA2 PO (15:56)
[2025-05-25] MEDS ORDERED: ATOR40TA52 PO (15:56)
[2025-05-25] MEDS ORDERED: MULT-1018 PO (15:56)
[2025-05-25] MEDS ORDERED: NIFE1TAB31 PO (16:14)
[2025-05-25] MEDS ORDERED: AZIT500T66 PO ×2 (16:19→16:20)
[2025-05-25] MEDS ORDERED: CEFD300C2 PO (16:19)
--- NOTE | 2025-05-25 16:23 | DVHDS2 ---
Discharge Summary Date of Admission May 21, 2025 at 03:36 Date of Discharge: May 25, 2025 Labs/Diagnostic Data: Laboratory Results Test 05/25/25 14:22 05/25/25 11:44 05/24/25 14:30 05/23/25 06:03 Blood Gas Specimen Type Arterial Blood Gas Sample Site Right radial Blood Gas Patient Temperature 37.0 Arterial Blood Date Drawn [id number] Arterial Blood pH 7.458 (7.350-7.450) Arterial Blood Partial Pressure CO2 39.5 mmHg (35.0-48.0) Arterial Blood Partial Pressure O2 47.3 mmHg (83.0-108.0) Arterial Blood HCO3 27.3 mmol/L (21.0-28.0) Arterial Blood Oxygen Saturation 79.6 % (94.0-98.0) Arterial Blood Base Excess 3.3 mmol/L (-2.0-3.0) Arterial Blood Oxyhemoglobin 78.6 % (94.0-98.0) Arterial Blood Carboxyhemoglobin 0.9 % (0.5-1.5) Arterial Blood Methemoglobin 0.3 % (0.0-1.5) Harshad Test Yes Blood Gas Total Hemoglobin 11.10 g/dL (13.5-17.5) Blood Gas Modality Room air FiO2 % 21.0 Blood Gas Critical Value Read Back Yes Blood Gas Notified Whom suzanne Cazares md Blood Gas Notified Time [id number] Blood Gas Notified By Meliton cerna POC Glucose 142 mg/dl (70-106) D-Dimer, Quantitative 2.48 mg/L FEU (0.0-0.49) Sodium Level 137 mmol/L (136-145) Potassium Level 5.6 mmol/L (3.5-5.1) Chloride Level 94 mmol/L (98-107) Carbon Dioxide Level 28 mmol/L (20-31) Anion Gap 15 (5-15) Blood Urea Nitrogen 77 mg/dL (9-23) Creatinine 10.55 mg/dL (0.700-1.30) Glomerular Filtration Rate Calc 5 mL/min (>90) BUN/Creatinine Ratio 7.3 (10.0-20.0) Serum Glucose 159 mg/dL (74-106) Calcium Level 7.3 mg/dL (8.7-10.4) Total Bilirubin 0.4 mg/dL (0.2-1.0) Aspartate Amino Transferase (AST) 19 U/L (<34) Alanine Aminotransferase (ALT) < 9 U/L (7-40) Alkaline Phosphatase 82 U/L (46-116) Total Protein 7.2 g/dL (5.7-8.2) Albumin 4.0 g/dL (3.2-4.8) Test 05/22/25 21:55 05/21/25 10:20 05/21/25 05:48 05/21/25 01:21 White Blood Count 6.5 10^3/uL (4.4-10.8) Red Blood Count 3.54 10^6/uL (4.5-5.90) Hemoglobin 11.1 g/dL (13.5-17.5) Hematocrit 33.1 % (41.0-53.0) Mean Corpuscular Volume 93.6 fL (80.0-100.0) Mean Corpuscular Hemoglobin 31.4 pg (28.0-32.0) Mean Corpuscular Hemoglobin Concent 33.5 g/dL (32.0-36.0) Red Cell Distribution Width 14.5 % (11.8-14.3) Platelet Count 190 10^3/uL (140-450) Mean Platelet Volume 7.8 fL (6.9-10.8) Neutrophils (%) (Auto) 65.2 % (37.0-80.0) Lymphocytes (%) (Auto) 19.0 % (10.0-50.0) Monocytes (%) (Auto) 10.5 % (0.0-12.0) Eosinophils (%) (Auto) 4.1 % (0.0-7.0) Basophils (%) (Auto) 1.2 % (0.0-2.0) Neutrophils # (Auto) 4.2 10 ^3/uL (1.6-8.6) Lymphocytes # (Auto) 1.2 10 ^3/uL (0.4-5.4) Monocytes # (Auto) 0.7 10 ^3/uL (0-1.3) Eosinophils # (Auto) 0.3 10 ^3/uL (0-0.8) Basophils # (Auto) 0.1 10 ^3/uL (0-0.2) Nucleated Red Blood Cells 0.1 % Prothrombin Time 11.2 sec (9.3-11.8) Prothrombin Time INR 1.06 (0.9-1.15) Activated Partial Thromboplast Time 29.2 SEC (24.5-34.5) Troponin I High Sensitivity 214 ng/L (</=54) Hepatitis B Surface Antigen Negative (Negative) Influenza Type A Antigen Negative (Negative) Influenza Type B Antigen Negative (Negative) SARS-CoV-2 Antigen (Rapid) Negative (NEGATIVE) Test 05/21/25 01:16 05/21/25 00:15 Blood Gas Set Respiration Rate 12.0 Blood Gas EPAP 5 Blood Gas IPAP 12 Hemoglobin A1c 6.0 % A1C (<5.7) Lactic Acid Level 1.3 mmol/L (0.4-2.0) Phosphorus Level 5.0 mg/dL (2.4-5.1) Magnesium Level 2.7 mg/dL (1.6-2.6) B-Type Natriuretic Peptide 1469.48 pg/mL (0-100) Lipase 96 U/L (12-53) Thyroid Stimulating Hormone (TSH) 4.06 uIU/mL (0.55-4.78) Plasma/Serum Blood Alcohol 4.8 mg/dL (<10) Other Laboratory Tests 05/23/25 06:03 05/22/25 21:55 Brief Hx & Hospital Course: 74-year-old male with a known history of hypertension, end-stage renal disease on hemodialysis, coronary artery disease, presented to the hospital with chest pain found to have non ST-elevation ME. Patient underwent status post left heart catheterization which shows normal coronary arteries medical management was recommended. Patient also has end-stage renal disease on hemodialysis. Patient had elevated D-dimer ruled out pulmonary embolism. Patient had hypoxia requiring 2 L of oxygen which will be arranged. Patient was treated for suspected pneumonia. Patient's blood cultures 1/2 were positive which is contamination as patient is afebrile and WBC count is normal. Patient is being discharged under stable condition on p.o. antibiotics. Nephrology and Cardiology cleared the patient to be discharged. Condition at Discharge: Stable Final Diagnosis/Problems List 74-year-old male with a known history of hypertension, end-stage renal disease on hemodialysis, coronary artery disease, presented to the hospital with chest pain found to have 1. NSTEMI status post left heart catheterization shows normal coronary artery 2. Known coronary artery disease 3. End-stage renal disease on hemodialysis 4. Hypertension 5. Anemia of chronic disease 6. Acute hypoxic respiratory failure secondary to fluid overload currently on 2 L of oxygen 7. Suspected pneumonia currently on IV antibiotic, we will switch to p.o. antibiotic 8.elevated D-dimer ruled out pulmonary embolism 9. Gram-positive bacteremia with the staff hemodialysis monitored for, likely contamination patient is asymptomatic Discharge Disposition: Home with [facility] Services SN[facility] Discharge Will this Physician continue t: No Discharge Instruct/Medications Diet: Cardiac 2g Na,low cholest Activity: No Restrictions, As Tolerated Follow Up/Referral: Follow up with the PCP in 1-2 weeks Follow up with the Cardiology in 1-2 weeks Follow up with Nephrology for hemodialysis. Medications: Cefdinir, azithromycin, nifedipine as prescribed, Colace as prescribed Discharge Statement: "Patient was advised to return to the ER or call 911 if any headaches, dizziness, shortness of breath, chest pain, abdominal pain, bleeding, fevers, or worsening of medical condition. Patient was counseled about treatment plan, medications, possible side effects, patientverbalized understanding. All questions were answered to the best of my ability. This discharge took greater then 30 minutes in planning, reviewing documentation, counseling the patient, and discussing with other team members." ASSESSMENT ASSESSMENT Assessment 74-year-old male with a known history of hypertension, end-stage renal disease on hemodialysis, coronary artery disease, presented to the hospital with chest pain found to have 1. NSTEMI status post left heart catheterization shows normal coronary artery 2. Known coronary artery disease 3. End-stage renal disease on hemodialysis 4. Hypertension 5. Anemia of chronic disease 6. Acute hypoxic respiratory failure secondary to fluid overload currently on 2 L of oxygen 7. Suspected pneumonia currently on IV antibiotic, we will switch to p.o. antibiotic 8.elevated D-dimer ruled out pulmonary embolism 9. Gram-positive bacteremia with the staff hemodialysis monitored for, likely contamination patient is asymptomatic Date of Service: May 25, 2025 Billing Provider: IVETH CAZARES MD Common Visit Codes: 79525-GZQ/OBS DISCH DAY >30min IVETH CAZARES MD May 25, 2025 16:23
--- NOTE | 2025-05-25 16:29 | DVHPN2 ---
Progress Note - Dictate Date Seen: May 25, 2025 Has the PT tested + for MRSA If YES, has PT been informed?: No Medical Necessity Reason Pt with a Central, PICC or Fol: No Subjective sob vital signs Vital Sign Date Time Temp Pulse Resp B/P (MAP) Pulse Ox O2 Delivery O2 Flow Rate FiO2 05/25/25 14:49 162/78 05/25/25 14:49 74 05/25/25 13:00 97.8 20 99 97.8 05/25/25 10:11 Nasal Cannula 5.0 05/25/25 10:11 40 Total Intake and Output 05/24/25 05/24/25 05/25/25 14:59 22:59 06:59 Intake Total 50 ml 970 ml 200 ml Output Total 0 ml Balance 50 ml 970 ml 200 ml medications Current Medications Medications Dose Ordered Sig/Rakan Route Start Time Stop Time Status Last Admin Dose Admin Nitroglycerin 0.4 mg Q5MINP PRN SL 05/21/25 03:45 Carvedilol 12.5 mg Q12HR PO 05/21/25 10:00 05/25/25 14:49 12.5 MG Nifedipine 30 mg DAILY PO 05/21/25 10:00 05/25/25 14:49 30 MG Diagnostic Test (Pha) 1 strip ACHS 05/21/25 07:00 05/25/25 11:30 1 STRIP Insulin Human Regular ACHS SC 05/21/25 07:00 05/25/25 11:30 2 UNITS Dextrose 50 ml UD PRN IV 05/21/25 06:00 Pantoprazole Sodium 40 mg DAILY@0600 PO 05/22/25 06:00 05/25/25 06:18 40 MG Heparin Sodium (Porcine) 5,000 units Q12HR SC 05/21/25 10:00 05/25/25 15:01 5,000 UNITS Ceftriaxone Sodium 50 ml @ 100 mls/hr DAILY@09 IV 05/22/25 09:00 05/25/25 14:47 100 MLS/HR Acetaminophen 650 mg Q6HP PRN PO 05/22/25 03:45 05/24/25 11:40 650 MG Morphine Sulfate 2 mg Q30M PRN IV 05/23/25 15:15 Docusate Sodium 100 mg BID PO 05/24/25 10:00 05/25/25 14:48 100 MG Azithromycin 250 ml @ 125 mls/hr DAILY IV 05/25/25 10:00 05/25/25 14:48 125 MLS/HR objective HEENT: No evidence of JVD, no oral ulcers. Pulmonary: Lungs are clear on auscultation bilaterally Cardiovascular S1-S2, no S3 or S4 Abdomen: Bowel sounds positive, soft no rebound tenderness Skin: No rash Neurological: Alert, oriented, no focal weakness Musculoskeletal: Area of induration left lateral lower leg close to the ankle with tenderness to palpation, eschar in place no fluctuance see her drainage Hemodialysis access AV fistula positive bruit and thrill laboratory and microbiology Laboratory Tests 05/23/25 06:03 05/22/25 21:55 Test 05/23/25 06:03 Range/Units Serum Glucose 159 H 74-106 mg/dL Assessment/Plan Assessment: 1. End-stage renal disease on hemodialysis via AV fistula 2. Hyperkalemia 3. Fluid overload 4. Chest pain, NSTEMI 5. Hyperlipidemia 6. Hypertension 7. Anemia of end-stage renal disease 8. Acute hypoxic respiratory failure 9. Left lower leg/ankle cellulitis Plan: Scheduled for HD today continue HD on MWF schedule Fluid restriction less than 1 L per day Continue beta-bernice, aspirin Consult cardiology Continue Rocephin, consult table tender sludge Continue carvedilol, nifedipine Rony for goal hemoglobin 10 grams/deciliter to 11 grams/deciliter Dietary Evaluation Review Comments: Increase CHO to a CCHO-60 Renal Standard Diet for adequate amount energy support. Expected Outcomes/Goals: Controlled DM, avoid uremic syndrome Plan discussed with: Patient SUSAN THORPE MD May 25, 2025 16:29
--- NOTE | 2025-05-25 21:30 | DVHPN2 ---
Progress Note - Dictate Date Seen: May 25, 2025 Has the PT tested + for MRSA If YES, has PT been informed?: No Medical Necessity Reason Pt with a Central, PICC or Fol: No Subjective Patient was seen and evaluated in follow up. Patient has no new complaints at this time. Patient denies any cardiac symptoms. Patient is cardiac stable for discharge. Telemetry reviewed. vital signs Vital Sign Date Time Temp Pulse Resp B/P (MAP) Pulse Ox O2 Delivery O2 Flow Rate FiO2 05/25/25 10:11 94 Nasal Cannula 5.0 05/25/25 10:11 40 05/25/25 09:30 98.2 74 22 129/64 (85) 98.2 Total Intake and Output 05/24/25 05/24/25 05/25/25 15:00 23:00 07:00 Intake Total 50 ml 970 ml 200 ml Output Total 0 ml Balance 50 ml 970 ml 200 ml medications Current Medications Medications Dose Ordered Sig/Rakan Route Start Time Stop Time Status Last Admin Dose Admin Nitroglycerin 0.4 mg Q5MINP PRN SL 05/21/25 03:45 Carvedilol 12.5 mg Q12HR PO 05/21/25 10:00 05/24/25 22:11 12.5 MG Nifedipine 30 mg DAILY PO 05/21/25 10:00 05/24/25 11:14 30 MG Diagnostic Test (Pha) 1 strip ACHS 05/21/25 07:00 05/25/25 11:30 1 STRIP Insulin Human Regular ACHS SC 05/21/25 07:00 05/25/25 11:30 2 UNITS Dextrose 50 ml UD PRN IV 05/21/25 06:00 Pantoprazole Sodium 40 mg DAILY@0600 PO 05/22/25 06:00 05/25/25 06:18 40 MG Heparin Sodium (Porcine) 5,000 units Q12HR SC 05/21/25 10:00 05/24/25 22:12 5,000 UNITS Ceftriaxone Sodium 50 ml @ 100 mls/hr DAILY@09 IV 05/22/25 09:00 05/24/25 11:13 100 MLS/HR Acetaminophen 650 mg Q6HP PRN PO 05/22/25 03:45 05/24/25 11:40 650 MG Morphine Sulfate 2 mg Q30M PRN IV 6/23/25 15:15 Docusate Sodium 100 mg BID PO 05/24/25 10:00 05/24/25 22:11 100 MG Azithromycin 250 ml @ 125 mls/hr DAILY IV 05/25/25 10:00 objective GENERAL: Alert and oriented x 3. No acute distress. EYES: PERRL, EOMI. Anicteric. HENT: Moist mucous membranes. LUNGS: Mild bibasilar crackles. CARDIOVASCULAR: Regular rate and rhythm. ABDOMEN: Soft, nontender and nondistended. EXTREMITIES: +1 BLE pitting edema. NEUROLOGIC: No focal neurological deficits. SKIN: Warm, dry. laboratory and microbiology Laboratory Tests 05/23/25 06:03 05/22/25 21:55 Test 05/23/25 06:03 Range/Units Serum Glucose 159 H 74-106 mg/dL Problem List Acute on chronic heart failure. NSTEMI status post left heart catheterization shows normal coronary artery. End-stage renal disease on hemodialysis. Hypertension. Diabetes type 2. Obesity. Anemia of chronic disease. Acute hypoxic respiratory failure. Hyperkalemia. Assessment/Plan Continued all current supportive medical care. IV antibiotics as ordered. Coreg, Nifedipine. Morphine for pain management. GI prophylactics. Nitro SL. Additional plan as per the hospital course. Dietary Evaluation Review Comments: Increase CHO to a CCHO-60 Renal Standard Diet for adequate amount energy support. Expected Outcomes/Goals: Controlled DM, avoid uremic syndrome Plan discussed with: Patient CRISTINA GRIFFITHS MD May 25, 2025 13:23
== END 2025-05-25 17:46 | disposition home health service (06) | DRG 280 ==
LOC: EDBD 23:46 → ER 23:53 → OVERFLOW 05-21 03:36 → TELE-CENTR 05-21 18:12
PROVIDERS: ADMIT Internal Medicine; ATTEND Internal Medicine
PROC: 5A1D70Z Performance of Urinary Filtration, Intermittent, Less than 6 Hours Per Day (ICD-10-PCS; 2025-05-21)
PROC: 5A09357 Assistance with Respiratory Ventilation, Less than 24 Consecutive Hours, Continuous Positive Airway Pressure (ICD-10-PCS; 2025-05-21)
PROC: 03HY32Z Insertion of Monitoring Device into Upper Artery, Percutaneous Approach (ICD-10-PCS; principal; 2025-05-23)
PROC: 4A023N7 Measurement of Cardiac Sampling and Pressure, Left Heart, Percutaneous Approach (ICD-10-PCS; 2025-05-23)
PROC: B211YZZ Fluoroscopy of Multiple Coronary Arteries using Other Contrast (ICD-10-PCS; 2025-05-23)
PROC: B215YZZ Fluoroscopy of Left Heart using Other Contrast (ICD-10-PCS; 2025-05-23)
PROC: B41FYZZ Fluoroscopy of Right Lower Extremity Arteries using Other Contrast (ICD-10-PCS; 2025-05-23)
PROC: 5A1D70Z Performance of Urinary Filtration, Intermittent, Less than 6 Hours Per Day (ICD-10-PCS; 2025-05-23)
PROC: 5A1D70Z Performance of Urinary Filtration, Intermittent, Less than 6 Hours Per Day (ICD-10-PCS; 2025-05-25)
DX: I21.4 Non-ST elevation (NSTEMI) myocardial infarction (principal); J15.69 Pneumonia due to other Gram-negative bacteria; J96.21 Acute and chronic respiratory failure with hypoxia; N18.6 End stage renal disease; J15.9 Unspecified bacterial pneumonia; I13.2 Hypertensive heart and chronic kidney disease with heart failure and with stage 5 chronic kidney disease, or end stage renal disease; L03.116 Cellulitis of left lower limb; I50.9 Heart failure, unspecified; E11.22 Type 2 diabetes mellitus with diabetic chronic kidney disease; E66.9 Obesity, unspecified; E87.5 Hyperkalemia; I25.10 Atherosclerotic heart disease of native coronary artery without angina pectoris; B96.89 Other specified bacterial agents as the cause of diseases classified elsewhere; E78.5 Hyperlipidemia, unspecified; E87.70 Fluid overload, unspecified; H40.89 Other specified glaucoma; E11.65 Type 2 diabetes mellitus with hyperglycemia; D63.1 Anemia in chronic kidney disease; Z99.2 Dependence on renal dialysis; Z79.899 Other long term (current) drug therapy; Z68.24 Body mass index [BMI] 24.0-24.9, adult
CPT/HCPCS: 36415; 36600; 71045; 71275; 80048; 80053; 80320; 82805; 82962; 83036; 83605; 83690; 83735; 83880; 84100; 84443; 84484; 85025; 85379; 85610; 85730; 86850; 86900; 86901; 87040; 87077; 87081; 87186; 87340; 87426; 87804; 90935; 93005; 93306; 93458; 94640; 94660; 99152; G0378; J1815; J2250; Q9967